=== PATIENT | male | born 1965 | race Caucasian/White ===

== ENCOUNTER 2019-08-03 14:39 | Outpatient (CLI) | payer BC, SELFPAY ==
--- NOTE | 2019-08-03 | ECHO_ITS ---
Patient Info Name: Adryan Bell Age: 54 years : 1965 Gender: Male Ht: 73 in Wt: 232 lbs BSA: 2.35 m2 HR: 74 bpm BP: 121 / 89 mmHg Heart Rhythm: Sinus Rhythm Technical Quality: Good Exam Date: 08/03/2019 3:04 PM Exam Location: [facility] Pulmonary Patient Status: Outpatient Admit Date: 08/03/2019 Staff Ordering Physician: PHYSICIAN NOT ON STAFF, NONSTAFF Automotive Production Worker: Marvin Manzo RDCS Attending Provider: PHYSICIAN NOT ON STAFF, NONSTAFF Exam Type: CA echo dop color flow w con Study Info Indications R06.00 - Dyspnea, unspecified Complete two-dimensional, color flow and Doppler transthoracic echocardiogram is performed. Strain analysis performed. History/Risk Factors Dyspnea. Summary 1. Left ventricular chamber dimension is normal. 2. Left ventricular systolic function is normal, estimated at 60-65%. 3. There is mildly increased left ventricular wall thickness. 4. The left ventricular diastolic function is grade I diastolic dysfunction. 5. E/e' 7 is not elevated. 6. Global longitudinal strain is mildly abnormal at -16.0%. 7. There is trace pulmonic regurgitation. 8. The aortic root size at the sinus of Valsalva is mildly dilated at 4.2 cm. Left Ventricle E/e' 7 is not elevated. Global longitudinal strain is mildly abnormal at -16.0%. Left ventricular chamber dimension is normal. Left ventricular systolic function is normal, estimated at 60-65%. There is mildly increased left ventricular wall thickness. The left ventricular diastolic function is grade I diastolic dysfunction. Right Ventricle Right ventricular chamber dimension is normal. Right ventricular systolic function is normal. Left Atria Left atrial chamber dimension is normal. Right Atria Right atrial chamber dimension is normal. Aortic Valve The aortic valve is trileaflet. There is no aortic valve stenosis. There is no aortic valve regurgitation. Pulmonic Valve There is trace pulmonic regurgitation. Mitral Valve There is no mitral valve stenosis. There is no mitral valve regurgitation. Tricuspid Valve There is no tricuspid valve regurgitation. Pericardium/Pleural There is no pericardial effusion. Inferior Vena Cava Normal inferior vena cava with >50% collapse upon inspiration consistent with normal right atrial pressure, 5 mmHg. Aorta The aortic root size at the sinus of Valsalva is mildly dilated at 4.2 cm. Left Ventricular Outflow Tract Name Value Normal LVOT 2D LVOT Diameter 1.99 cm LVOT Doppler LVOT Peak Gradient 4 mmHg LVOT Mean Gradient 2 mmHg LVOT VTI 17.45 cm LVOT VTI/AV VTI Ratio 0.80 LVOT Stroke Volume 54.41 ml LVOT CO 4.64 l/min LVOT CI 1.97 L/min/m2 Mitral Valve Name Value Normal
== END 2019-08-03 14:40 | disposition home or self-care (01) ==
PROVIDERS: PCP Family Medicine
DX: R06.00 Dyspnea, unspecified (principal)
CPT/HCPCS: C8929

== ENCOUNTER 2020-08-08 10:31 | Outpatient (CLI) | payer BC, SELFPAY ==
--- NOTE | ~2020-08-08 | XR_ITS ---
EXAMINATION: XR_CERV2-3V_CR EXAM DATE: 08/08/2020 11:21 INDICATION: Seronegative rheumatoid arthritis. Bilateral extremity paresthesia. Cervical fusion. TECHNIQUE: Cervical spine frontal, lateral, open-mouth odontoid projections. Comparison is made to lavelle ace examination from 01/06/2018. FINDINGS: Anterior and interbody fusion at C6-7, intact. There is moderate loss of the C5-6 disc hei ght. Mild disc disease at the 2 levels above. C7-T1 disc space poorly visualized on the lateral. Prev ertebral soft tissue and pre-dens space are within normal limits. The odontoid process is intact. Th e lateral masses of C1 line up with C2. The vertebral bodies are aligned in the AP dimension. Overall moderate cervical arthropathy. Evidence of bilateral neural foraminal stenosis at C5-6, could be mod erate. Compared to 2018, mild progression in the mid cervical disc disease, endplate osteophytes at C 5 are larger. IMPRESSION: 1. Moderate C5-6 disc disease. 2. Moderate arthropathy. 3. C6-7 fusion. Reviewed, dictated and finalized at location A.
--- NOTE | ~2020-08-08 | XR_ITS ---
EXAMINATION: XR knee RT 3V DATE: 08/08/2020 11:22 INDICATION: Seronegative rheumatoid arthritis. TECHNIQUE: 3 views of right knee were obtained. COMPARISON: None. FINDINGS: Bone alignment is normal. No fracture. There is mild osteoarthritis of medial and patellofe moral compartments characterized by tiny marginal osteophytes. There is a moderate-sized knee joint e ffusion. There is prepatellar and superficial infrapatellar bursitis. IMPRESSION: 1. Mild right knee osteoarthritis. 2. Moderate-sized right knee joint effusion. Reviewed, dictated and finalized at location A.
--- NOTE | ~2020-08-08 | XR_ITS ---
EXAMINATION: XR knee LT 3V DATE: 08/08/2020 11:21 INDICATION: Seronegative rheumatoid arthritis. TECHNIQUE: 3 views of left knee were obtained. COMPARISON: None. FINDINGS: Bone alignment is normal. No fracture. There is mild osteoarthritis of medial and patellofe moral compartments contrast by tiny marginal osteophytes. There is a small knee joint effusion. There is prepatellar and superficial infrapatellar bursitis. IMPRESSION: 1. Mild left knee osteoarthritis. 2. Small left knee joint effusion. 3. Prepatellar and superficial infrapatellar bursitis. Reviewed, dictated and finalized at location A.
--- NOTE | ~2020-08-08 | XR_ITS ---
EXAMINATION: XR foot LT min 3V EXAM DATE: 08/08/2020 11:21 INDICATION: Seronegative rheumatoid arthritis. TECHNIQUE: Left foot dorsoplantar, lateral and oblique projections obtained and reviewed. Correlation is made to Contralateral foot same date. FINDINGS: Left metatarsal bones unremarkable. The joint spaces are uniform. There are no acute f ractures or dislocations identified. There is no subcutaneous gas. The soft tissue is unremarkable. There are no radiopaque foreign bodies. IMPRESSION: Unremarkable left foot exam. Reviewed, dictated and finalized at location A.
--- NOTE | ~2020-08-08 | XR_ITS ---
EXAMINATION: XR foot RT min 3V EXAM DATE: 08/08/2020 11:21 INDICATION: Seronegative rheumatoid arthritis. TECHNIQUE: Right foot dorsoplantar, lateral and oblique projections obtained and reviewed. Correlati on is made to contralateral foot same date. FINDINGS: Right metatarsal bones unremarkable. There is mild 1st metatarsophalangeal primary osteoar thritis. Tiny juxta-articular erosions identified along the volar medial aspect of the 1st proximal phalanx with sclerotic margins, chronic and the only erosion identified. This is nonspecific, could b e gout, rheumatoid, or subchondral cyst. There are no acute fractures or dislocations identified. Th ere is no subcutaneous gas. The soft tissue is unremarkable. There are no radiopaque foreign godwin s. IMPRESSION: 1. Tiny chronic appearing nonspecific erosion right 1st proximal phalanx. 2. Mild 1st MTP osteoarthritis. Reviewed, dictated and finalized at location A.
--- NOTE | ~2020-08-08 | XR_ITS ---
EXAMINATION: XR hand LT min 3V, XR hand RT min 3V DATE: 08/08/2020 11:21 INDICATION: Seronegative rheumatoid arthritis TECHNIQUE: 1. Posteroanterior, oblique and lateral views of the left hand were obtained. 2. Posteroanterior, oblique and lateral views of the right hand were obtained. COMPARISON: None. FINDINGS: Normal alignment at both hands and wrists. Likely old healed fracture of the left third metacarpal wh ich is healed with some palmar angulation. No other fractures identified. Mild polyarticular osteoart hritis at the bilateral hands and wrists characterized by mild nonuniform joint space narrowing and/o r small marginal osteophytes. This can be seen at the bilateral distal radioulnar joints, the left ra diocarpal, bilateral first carpometacarpal and multiple metacarpophalangeal and interphalangeal joint s, the latter with distal predominance. No more uniform appearing joint space narrowing, erosions or periarticular osteopenia to suggest an inflammatory arthritis such as rheumatoid. IMPRESSION: 1. Mild polyarticular osteoarthritis at the bilateral hands and wrists. Reviewed, dictated and finalized at location B. IMPRESSION: 1. Mild polyarticular osteoarthritis at the bilateral hands and wrists.
== END 2020-08-08 10:32 | disposition home or self-care (01) ==
PROVIDERS: PCP Family Medicine
DX: R20.2 Paresthesia of skin (principal); M25.50 Pain in unspecified joint; M19.071 Primary osteoarthritis, right ankle and foot; Z98.1 Arthrodesis status; M50.322 Other cervical disc degeneration at C5-C6 level; M19.042 Primary osteoarthritis, left hand; M19.032 Primary osteoarthritis, left wrist; M25.462 Effusion, left knee; M17.0 Bilateral primary osteoarthritis of knee; M25.461 Effusion, right knee
CPT/HCPCS: 72040; 73130; 73562; 73630

== ENCOUNTER 2020-12-13 09:22 | Outpatient (CLI) | payer BC, SELFPAY ==
[2020-12-13 09:59] LABS: Alanine Aminotransferase 27 U/L (4-50); Albumin Level 4.2 g/dL (3.5-5.1); Alkaline Phosphatase 63 U/L (38-126); Anion Gap 9 mmol/L (8-16); Aspartate Amino Transferase 31 U/L (17-59); Bilirubin,Total 0.5 mg/dL (0.2-1.3); Blood Urea Nitrogen 17 mg/dL (9-20); Calcium 9.9 mg/dL (8.4-10.2); Carbon Dioxide 30 mmol/L (22-30); Chloride 98 mmol/L (98-107); Estimated Glomerular Filt Rate > 60; Glucose 175 mg/dL (65-110); Sodium 137 mmol/L (137-145); Uric Acid 6.7 mg/dL (3.5-8.5)
== END 2020-12-13 09:23 | disposition home or self-care (01) ==
PROVIDERS: PCP Family Medicine; Visit Provider Podiatrist Foot & Ankle Surgery
DX: M10.079 Idiopathic gout, unspecified ankle and foot (principal)
CPT/HCPCS: 36415; 80053; 84550

== ENCOUNTER 2021-01-20 10:03 | Outpatient (CLI) | payer BC, SELFPAY ==
[2021-01-20 10:39] LABS: Anion Gap 7 mmol/L (8-16); Blood Urea Nitrogen 19 mg/dL (9-20); Calcium 9.4 mg/dL (8.4-10.2); Carbon Dioxide 28 mmol/L (22-30); Chloride 100 mmol/L (98-107); Estimated Glomerular Filt Rate 52; Glucose 121 mg/dL (65-110); Magnesium 1.7 mg/dL (1.6-2.3); Potassium 4.7 mmol/L (3.4-5.0); Sodium 135 mmol/L (137-145)
== END 2021-01-20 10:04 | disposition home or self-care (01) ==
PROVIDERS: PCP Family Medicine; Visit Provider Family Medicine
DX: N28.9 Disorder of kidney and ureter, unspecified (principal)
CPT/HCPCS: 36415; 80048; 83735

== ENCOUNTER 2021-02-21 15:56 | Outpatient (CLI) | payer BC, SELFPAY ==
--- NOTE | ~2021-02-21 | XR_ITS ---
XR lumbar spine 2-3V DATE: 02/21/2021 16:31 INDICATION: Back pain for 12 years. Seronegative rheumatoid arthritis TECHNIQUE: AP, lateral, coned lateral lumbosacral views COMPARISON: None FINDINGS: There is degenerative spurring of the lower thoracic spine including prominent degenerative disc disease at T10-11, T11-12 and T12-L1. There is mild degenerative disc disease at L1-2, L2-3, L3-4 and L4-5. There is degenerative change at the apophyseal joints, particular at L4-5 and L5-S1, with associated grade 1 anterolisthesis at L4-5. No fracture or dislocation or bone destruction is noted. The lumbar pedicles are intact. The sacroili ac joints appear normal. IMPRESSION: Degenerative changes of the thoracic and lumbar spine Reviewed, dictated and finalized at location B.
--- NOTE | ~2021-02-21 | XR_ITS ---
EXAMINATION: XR hip LT min 2V INDICATION: Seronegative rheumatoid arthritis TECHNIQUE: Three views of the left hip are obtained. COMPARISON: None available FINDINGS: Bone alignment is normal. There is no fracture. Mild osteoarthritis is noted. The soft tiss ues are unremarkable. IMPRESSION: 1. Mild osteoarthritis. Reviewed, dictated and finalized at location A. IMPRESSION: 1. Mild osteoarthritis.
--- NOTE | ~2021-02-21 | XR_ITS ---
EXAMINATION: XR sacroiliac joints min 3V INDICATION: Seronegative rheumatoid arthritis TECHNIQUE: Three views of the sacroiliac joints are obtained. COMPARISON: None available FINDINGS: Bone alignment is normal. There is no abnormal sclerosis or erosion of the sacroiliac joint s. The soft tissues are unremarkable. IMPRESSION: 1. Unremarkable sacroiliac joints. Reviewed, dictated and finalized at location A.
== END 2021-02-21 15:57 | disposition home or self-care (01) ==
LOC: ANHIMG 16:00
PROVIDERS: PCP Family Medicine
DX: M47.817 Spondylosis without myelopathy or radiculopathy, lumbosacral region (principal); M47.815 Spondylosis without myelopathy or radiculopathy, thoracolumbar region; M06.852 Other specified rheumatoid arthritis, left hip
CPT/HCPCS: 72100; 72202; 73502

== ENCOUNTER 2021-05-08 11:40 | Outpatient (CLI) | payer BC, SELFPAY ==
--- NOTE | 2021-05-08 11:48 | ECG_ITS ---
Measurements Intervals [place] Rate: 69 P: 18 MA: 200 QRS: 20 QRSD: 88 T: 30 QT: 377 QTc: 406 Interpretive Statements SINUS RHYTHM BASELINE ARTIFACT- I, II, III NORMAL ECG Electronically Signed On 05-08-2021 12:06:14 ROAD MECHANIC by Dennys Jimenez D.O.
[2021-05-08 12:28] LABS: Anion Gap 6 mmol/L (8-16); Blood Urea Nitrogen 17 mg/dL (9-20); Calcium 9.1 mg/dL (8.4-10.2); Carbon Dioxide 28 mmol/L (22-30); Chloride 101 mmol/L (98-107); Estimated Glomerular Filt Rate > 60; Glucose 124 mg/dL (65-110); Sodium 135 mmol/L (137-145)
== END 2021-05-08 11:41 | disposition home or self-care (01) ==
LOC: ANHSURGERY 11:44
PROVIDERS: Anesthesiology; PCP Family Medicine; Visit Provider Surgery
DX: Z01.818 Encounter for other preprocedural examination (principal); K43.0 Incisional hernia with obstruction, without gangrene; I10 Essential (primary) hypertension; E11.9 Type 2 diabetes mellitus without complications
CPT/HCPCS: 36415; 80048; 86850; 86900; 86901; 93005

== ENCOUNTER 2021-05-10 01:16 | Day surgery (SDC) | payer BC, SELFPAY ==
[2021-05-07 14:54] VITALS: BMI 29.7
--- NOTE | 2021-05-07 15:02 | PC.NURSE ---
Report to the Outpatient Waiting Room, entrance under the green pavilion located off [facility], at time __1000 on date _05/10/21 . OR Time: _1200 . - You and your visitor will be asked a series of questions to screen for COVID 19 for your protection. - A mask is required within the hospital. - Only one visitor is allowed at this time. Patient visitors will be guided where to wait when not with patient. Preoperative COVID Testing Requirements: No COVID Test needed if: (proof is required; if not received patient will have Rapid Test prior to entry) - Patient has received COVID Vaccine at least 14 days prior to procedure date or - Patient has positive COVID test result within last 90 days of surgery date. COVID Test needed if above criteria is not met If not COVID vaccinated a COVID test must be conducted within 72 hours of surgery and patient is asked to isolate self from time of testing until procedure. You will go to the [facility] Testing Site for your COVID testing. The [facility] Testing site is located at the corner of [address] [facility]. You will only be called if COVID results are positive and your surgeon may reschedule your elective surgery date. Patients may have clear liquids (water, carbonated beverages, clear teas, apple juice) until 3 hours prior to surgery with a maximum of 20 ounces. - No food from midnight until time of surgery - Infants may have breast milk until 4 hours before surgery, infant formula 6 hours prior to surgery. - Children will be allowed to drink immediately following surgery. If applicable, please bring a bottle or sippy cup to assist with drinking. Juice, water, soda, and popsicles are readily available. For infants on formula, please bring formula the day of surgery. Pacifiers are allowed. Take the following medications with a SIP of water the morning of surgery: ___NONE Medications to discontinue per physician NONE Date to take last dose Please no make-up, nail guinean, hairspray, perfume, deodorant, or body powder the day of surgery. No jewelry (including any body piercings) or valuables the day of surgery, leave them at home. Please take a shower or bath the night before, or the morning of, surgery with an antibacterial soap. Wear comfortable, loose fitting clothing. Children are encouraged to wear pajamas. - Jewelry must be removed prior to entering the operating room. Rings and piercings that are not removed may be cut off. - The hospital will not accept responsibility for valuables. - Please leave all valuables, including medications, at home the day of surgery. HIBICLENS SHOWER MORNING OF SURGERY If you are going home after surgery, a licensed cl[place] driver must drive you home. - NO public transportation without another adult. - We recommend that an adult stay with you for 24 hours following discharge. - We also recommend that you do not drive, make important decision, drink alcoholic beverages, or take any drugs that were not prescribed by your health care provider for at least 24 hours after your discharge time. For Pediatric surgeries, we recommend two adults accompany the child home (only one inside the building at this time). Follow any additional instructions given to you from your surgeon. Telephone instructions given to __PATIENT and asked if any additional questions and then verbalized understanding. Patient advised to call surgeon office or pre surgery nurse liaison [phone] if any additional questions.
[2021-05-10] VITALS (10 sets, daily range): BP systolic 106–131; BP diastolic 64–87; PULSE 58–85; RESP 11–18; TEMP 36.6–36.8; O2SAT 93–100
[2021-05-10] MEDS: ACETAMINOPHEN 500 MG TABLET 1000 MG PO (10:28)
[2021-05-10] MEDS: KETOROLAC 15 MG/ML VIAL (*BKC) IV PUSH (10:41)
[2021-05-10 10:53] LABS: Glucose Point of Care 103 mg/dl (65-105)
--- NOTE | 2021-05-10 11:10 | WPDANESEPPF ---
Anes - Initial Pre Proc Eval Procedure: Operation Date: 05/10/21 12:00 Proposed Procedures p Robotic Assisted Incarcerated Incisional Hernia Repair with Mesh - Lisette Wynn MD Date/Time: 05/10/21 11:10 Surgeon: Lisette Wynn MD Pre Op Diagnosis: Recurrent Incarcerated Incisional Hernia Patient Data Age: 56 Gender: M Height: 1.85 m Weight: 102.8 kg Allergies Allergy/AdvReac Type Severity Reaction Status Date / Time No Known Allergies Allergy Verified 05/10/21 10:14 Home Medications Medication Instructions Recorded Confirmed Type syringe with needle 3 mL 21 gauge #26 ea 08/10/20 04/25/21 Rx x 1 lisinopril 10 mg tablet 10 mg PO DAILY #90 tablet 11/07/20 05/10/21 Rx upadacitinib 15 mg tablet,extended 15 mg PO DAILY 01/19/21 05/10/21 History release 24 hr blood-glucose meter #1 ea 02/07/21 04/25/21 Rx allopurinol 100 mg tablet 100 mg PO DAILY 04/16/21 05/10/21 History metformin 500 mg tablet,extended 500 mg PO DAILY #30 tablet 04/24/21 05/10/21 Rx release 24 hr duloxetine 30 mg PO HS 05/07/21 05/10/21 History Laboratory Tests 05/10/21 10:50 POC Capillary Glucose 103 mg/dl mg/dl (65-105) Patient hx anesthesia problems: none Family hx anesthesia problems: none Results Review: All pre-operative results and documents have been reviewed as part of the pre-operative evaluation. [facility] Past Medical History Medical History Arthritis BMI greater than 30 BPH (benign prostatic hyperplasia) Chronic anxiety Chronic sore throat Diabetes Diabetes type 2, controlled Generalized osteoarthritis of multiple sites Insomnia Low testosterone in male Neurogenic bladder Overweight with body mass index (BMI) of 29 to 29.9 in adult Radiculopathy affecting upper extremity Rheumatoid arthritis Throat pain in adult Undifferentiated inflammatory polyarthritis Surgical History Surgical History History of fusion of cervical spine C6-C7 Hx of hernia repair Hx of knee surgery Family History Family History Father Family history of diabetes mellitus in first degree relative Family history of cardiovascular disease Grandparent Family history of malignant neoplasm of breast in first degree relative Other Family history of kidney disease Family history of malignant neoplasm of ovary Social History Social History Social History: caffeine use: occasional glass of tea Smoking status: Never smoker Alcohol intake: never Substance use: never Living arrangements: with family 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 Informed Consent: The patient's anesthetic plan and its attendant risks and benefits were discussed with the patient/family/POA. Questions were solicited and answers provided to the satisfaction of the patient/family/POA.
[2021-05-10] MEDS: SCOPOLAMINE 1.5 MG PATCH TRANSDERM (11:45)
[2021-05-10] MEDS: LACTATED RINGERS 1,000 ML 30 ML IV CONT (11:45)
--- NOTE | 2021-05-10 12:01 | WPDHPUPDATE1 ---
History and Physical Update Update Date/Time: 05/10/21 12:01 History and Physical has been reviewed, including an updated exam of the patient. There are NO changes in the patient's condition. Risks, benefits, and alternatives have been discussed and questions answered. Patient agrees to proceed with procedure.
[2021-05-10] MEDS: ceFAZolin 2 GM/D5W 50 ML 2 GM/50 ML BAG IVPB (12:07)
[2021-05-10] MEDS: LIDO 2%/EPINEPHRINE 1:100,000 20 ML VIAL 36 ML INFILTRATE (12:32)
[2021-05-10 14:02] LABS: Glucose Point of Care 136 mg/dl (65-105)
--- NOTE | 2021-05-10 14:02 | W.PM.PROC2 ---
Procedure Note - Detailed Date of Procedure 05/10/21 Pre-op Diagnosis Recurrent Incarcerated Incisional Hernia Post-op Diagnosis same Procedure Performed Robotic assisted repair recurrent incarcerated incisional hernia with mesh Surgeon Lisette Wynn MD Anesthesia general Indications 56-year-old male presenting with recurrent incarcerated incisional hernia Findings recurrent incarcerated periumbilical or hernia measuring approximately 4 cm Description of Procedure The patient was taken the operating room placed in the supine position. After adequate induction of general anesthesia, the patient was prepped and draped in normal sterile fashion. A time-out was then done to verify the patient's identity as well as the procedure being performed. I began by making a 5 mm incision in the left upper quadrant. Through this, a Veress needle was placed into the peritoneal cavity and CO2 gas was insufflated. After adequate pneumoperitoneum was achieved, a 5 mm trocar was placed through this incision. I then placed the laparoscope through this trocar site and under direct visualization I placed a 8 mm port in the left mid abdomen as well as an additional 8 mm port in the left lower abdomen. I then moved the camera to the lower port and replaced the 5 mm port with a 12 mm airport. The robot was then docked to the 3 port sites. I then went to the robotic console. I began by identifying the hernia. A moderate-sized incarcerated hernia was noted in the periumbilical region. Using graspers, I was able to reduce this hernia. The hernia was noted to contain a large amount of preperitoneal fat and omentum. Once reduced, I also reduced and dissected out the hernia sac. I then closed the approximately 4 cm defect with 0 strata fix suture. I then placed a [address] mesh into the abdominal cavity. The positional stitch was placed in the middle of the mesh and brought up centering the mesh over the defect. Once this was done, I used 2 0 V lock suture x 2 to circumferentially suture the mesh to the abdominal. Once the mesh was completely sutured in, I was happy with our tension-free repair. The mesh was noted to have good overlap of the defect. I then removed the positioning device. At this point, the robot was undocked and all ports were removed. I then closed the 12 mm port site with an 0 Vicryl [id number] suture at the fascial level. All port sites were then closed with 4 O Monocryl subcuticular suture. The patient tolerated the procedure well, is extubated in the operating room postoperative, OB transferred to the recovery room in stable condition. Implants [address] mesh Estimated Blood Loss 10 Drains No Packing No Pathology none sent Complications No immediate complications Condition stable Disposition PACU
--- NOTE | 2021-05-10 14:44 | SUR.PHASEI ---
Simple mask removed at 1443.
[2021-05-10] MEDS: fentaNYL CITRATE INJ (*CRX) 100 MCG/2 ML VIAL 25 MCG IV PUSH ×2 (15:07→15:10)
[2021-05-10] MEDS: oxyCODONE HCL (*CRX) 5 MG TAB IR PO (15:41)
== END 2021-05-10 16:49 | disposition home or self-care (01) ==
PROVIDERS: PCP Family Medicine; Visit Provider Surgery
PROC: (CPT 49657; principal; 2021-05-10 12:00)
DX: K43.0 Incisional hernia with obstruction, without gangrene (principal); E11.9 Type 2 diabetes mellitus without complications; F41.9 Anxiety disorder, unspecified; M06.9 Rheumatoid arthritis, unspecified; M06.4 Inflammatory polyarthropathy; N40.0 Benign prostatic hyperplasia without lower urinary tract symptoms; N31.9 Neuromuscular dysfunction of bladder, unspecified; Z79.84 Long term (current) use of oral hypoglycemic drugs; Z98.1 Arthrodesis status
CPT/HCPCS: 49657; S2900; 82948; A9270; J0690; J1100; J1885; J2250; J2270; J2405; J2704; J2710; J3010; J7120

== ENCOUNTER 2021-06-05 15:57 | Outpatient (CLI) | payer BC, SELFPAY ==
--- NOTE | ~2021-06-05 | US_ITS ---
EXAMINATION: US renal BI DATE: 06/05/2021 16:37 INDICATION: Proteinuria, elevated creatinine TECHNIQUE: Multiple grayscale and Doppler ultrasound images of the kidneys were obtained. COMPARISON: None. FINDINGS: The right kidney measures 12.6 x 6.3 x 6.6 cm. The left kidney measures 11.3 x 4.3 x 5.7 cm . There is a 1.7 cm cyst of the left kidney. The kidneys demonstrate normal parenchymal echogenicity. There is no hydronephrosis. The bladder is normal. IMPRESSION: 1. Normal kidneys without hydronephrosis. Reviewed, dictated and finalized at location F. 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
== END 2021-06-05 15:58 | disposition home or self-care (01) ==
PROVIDERS: PCP Family Medicine; Visit Provider Internal Medicine Nephrology
DX: R80.8 Other proteinuria (principal); R79.89 Other specified abnormal findings of blood chemistry
CPT/HCPCS: 76775

== ENCOUNTER 2021-07-18 14:06 | Outpatient (CLI) | payer BC, SELFPAY ==
--- NOTE | 2021-07-20 10:20 | WPDHOLTEREM ---
Holter/Event Monitor Holter/Event Monitor Date of procedure: 07/18/21 Holter/Event Procedure: 24 Hr Holter Monitor Indications: Tachycardia Conclusion: 1. 24 hour holter monitor on 07/18/21. 2. Underlying rhythm is sinus rhythm. HR range 52-143 bpm; average HR 80 bpm. 3. There are 17 premature supraventricular complexes and 2 supraventricular couplets. No supraventricular tachycardia. 4. There are 2 premature ventricular complexes and 1 ventricular couplet. No ventricular tachycardia. 5. No sinoatrial or atrioventricular blocks. No significant pauses greater than 2 seconds. 6. No symptoms available for correlation.
== END 2021-07-18 14:07 | disposition home or self-care (01) ==
LOC: ANHCARD 14:07
PROVIDERS: PCP Family Medicine; Visit Provider Family Medicine
DX: R00.0 Tachycardia, unspecified (principal)
CPT/HCPCS: 93225; 93226

== ENCOUNTER 2022-10-14 12:53 | Emergency (ER) | payer BC, SELFPAY ==
[2022-10-14 12:54] VITALS: BP 132/88; PULSE 110; RESP 21; TEMP 36.1; O2SAT 99
[2022-10-14 13:12] LABS: Basophils Absolute Auto 0.1 K/mm3 (0.0-0.1); Basophils Percent Auto 0.4 % (0.2-1.2); Eosinophils Absolute Auto 0.2 K/mm3 (0-0.3); Eosinophils Percent Auto 1.7 % (0-4.4); Hematocrit 41.9 % (42.0-52.0); Immature Granulocyte Absolute 0.06 K/mm3 (0.00-0.031); Immature Granulocyte Percent A 0.4 % (0-0.5); Lymphocytes Absolute Auto 1.79 K/mm3 (0.9-3.2); Lymphocytes Percent Auto 12.7 % (18.3-44.2); Mean Corpuscular HGB Conc 33.4 g/dl (32-36); Mean Corpuscular Hemoglobin 31.5 pg (26-34); Mean Corpuscular Volume 94.4 fl (80-100); Monocytes Absolute Auto 0.7 K/mm3 (0.1-0.6); Monocytes Percent Auto 5.1 % (2.6-8.5); Neutrophils Absolute Auto 11.2 K/mm3 (1.3-6.7); Neutrophils Percent Auto 79.7 % (45.5-73.1); Platelet Count Result 306 k/mm3 (150-375); Red Blood Count 4.44 M/mm3 (4.6-6.20); Red Cell Distribution Width 13.1 % (11.5-14.5); White Blood Count 14.1 K/mm3 (4.5-10.0)
[2022-10-14 13:18] LABS: Appearance Urine Clear (Clear); Bilirubin Urine Negative (Negative); Blood Urine Negative (Negative); Color Urine Dark Yellow (Yellow); Glucose Urine UA Negative (Negative); Ketones Urine Negative (Negative); Leukocyte Esterase Ur Negative LEU/UL (Negative); Nitrate Urine Negative (Negative); Protein Urine Negative (Negative); Urobilinogen Urine 0.2 mg/dL (<2.0); pH Urine 5.5 (5.0-9.0)
[2022-10-14 13:29] LABS: Add Urine Microscopic? NO
[2022-10-14 13:34] LABS: Alanine Aminotransferase 27 U/L (6-50); Albumin Level 4.8 g/dL (3.5-5.1); Alkaline Phosphatase 64 U/L (38-126); Anion Gap 8 mmol/L (8-16); Aspartate Amino Transferase 32 U/L (17-59); Bilirubin,Total 0.9 mg/dL (0.2-1.3); Blood Urea Nitrogen 19 mg/dL (9-20); Calcium 9.2 mg/dL (8.4-10.2); Carbon Dioxide 27 mmol/L (22-30); Chloride 102 mmol/L (98-107); Estimated CRCL calculation 66 ml/min; Estimated Glomerular Filt Rate 52; Glucose 109 mg/dL (65-110); Lipase 25 U/L (23-300); Potassium 4.7 mmol/L (3.4-5.0); Sodium 137 mmol/L (137-145)
--- NOTE | 2022-10-14 15:00 | PC.NURSE ---
pt ambulated to intake desk and states he is leaving. pt ambulatory out of ED.
== END 2022-10-14 15:30 | disposition left against medical advice (07) ==
LOC: ANHED 15:06
PROVIDERS: Emergency Provider Emergency Medicine; PCP Family Medicine
DX: R10.9 Unspecified abdominal pain (principal)
CPT/HCPCS: 36415; 80053; 81003; 83690; 85025; 99199

== ENCOUNTER 2023-11-25 00:59 | Day surgery (SDC) | payer BC, SELFPAY ==
[2023-11-10 14:29] VITALS: BMI 30.4
[2023-11-25 14:20] VITALS: BP 120/92; PULSE 62; RESP 18; TEMP 36.3; O2SAT 99
[2023-11-25] MEDS: LACTATED RINGERS 1,000 ML 150 ML IV CONT (14:24)
--- NOTE | 2023-11-25 14:35 | WPDANESEPPF ---
Anes - Initial Pre Proc Eval Procedure: Operation Date: 11/25/23 16:00 Proposed Procedures p Esophagogastroduodenoscopy - Luis Eduardo Rg MD Date/Time: 11/25/23 14:35 Surgeon: Luis Eduardo Rg MD Pre Op Diagnosis: Abdominal Distension, Abdominal pain Patient Data Age: 58 Gender: M Height: 1.85 m Weight: 106.6 kg Last Vital Signs Temp 97.3 F L 11/25/23 14:20 Pulse 62 11/25/23 14:20 Resp 18 11/25/23 14:20 BP 120/92 H 11/25/23 14:20 Pulse Ox 99 11/25/23 14:20 O2 Del Method Room Air 11/25/23 14:20 Allergies Allergy/AdvReac Type Severity Reaction Status Date / Time No Known Allergies Allergy Verified 11/25/23 14:18 Home Medications Medication Instructions Recorded Confirmed Type blood-glucose meter (Contour Next #1 ea 02/07/21 07/24/23 Rx Meter) blood sugar diagnostic (Contour #100 ea 12/19/21 07/24/23 Rx Next Test Strips) duloxetine 30 mg capsule,delayed See Rx Instructions .Route 05/26/22 11/10/23 Rx release .COMPLEX #90 caps allopurinol 300 mg tablet 300 mg PO DAILY #90 tabs 08/20/23 11/25/23 Rx fexofenadine 30 mg tablet 60 mg PO DAILY 11/10/23 11/10/23 History metoprolol succinate 50 mg 50 mg PO HS 11/10/23 11/10/23 History tablet,extended release 24 hr nitroglycerin 0.4 mg sublingual 0.4 mg sublingual DAILY PRN Chest 11/10/23 11/10/23 History tablet Pain rosuvastatin 10 mg tablet 100 mg PO DAILY 11/10/23 11/10/23 History Patient hx anesthesia problems: none Family hx anesthesia problems: none Results Review: All pre-operative results and documents have been reviewed as part of the pre-operative evaluation. [facility] Past Medical History Medical History (Updated 11/12/23 @ 15:38 by Alisia Neumann, LEGAL SUPPORT SPECIALIST) Arthritis BMI 29.0-29.9,adult BMI 30.0-30.9,adult BMI greater than 30 BPH (benign prostatic hyperplasia) Cervical disc disease with myelopathy Cervical disc disorder at C5-C6 level with radiculopathy Chronic anxiety Chronic sore throat COVID-19 Diabetes Diabetes type 2, controlled General weakness Generalized osteoarthritis of multiple sites Gout Insomnia Left upper quadrant pain Low testosterone in male Neurogenic bladder Overweight with body mass index (BMI) of 29 to 29.9 in adult Progressive neurological disorder Radiculopathy affecting upper extremity Rheumatoid arthritis Seronegative rheumatoid arthritis Tachycardia Throat pain in adult Undifferentiated inflammatory polyarthritis Surgical History Surgical History History of fusion of cervical spine C6-C7 History of incisional hernia repair 05/10/21 Robotic assisted repair recurrent incarcerated incisional hernia with mesh Hx of hernia repair Hx of knee surgery Family History Family History Father Family history of diabetes mellitus in first degree relative Family history of cardiovascular disease Grandparent Family history of malignant neoplasm of breast in first degree relative Other Family history of kidney disease Family history of malignant neoplasm of ovary Social History Social History Social History: caffeine use: occasional glass of tea Smoking status: Never smoker Alcohol intake: never Substance use: never Substance use type: does not use Do You Feel Safe in your Home?: Yes Lack of Transportation: No Lack of Food: Never True Current Housing: I Have Housing Concerned About Future Housing: No Difficulty Paying Gas/Electric Bills: No Difficulty Paying for Meds: No Currently Unemployed: No Education: Associate Degree Difficulty w/ Childcare or Family Care: No Living arrangements: with family 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
--- NOTE | 2023-11-25 14:53 | PM.HPGS ---
History of Present Illness History of Present Illness Consent: Risks, benefits, and alternatives have been discussed and questions answered. Patient agrees to proceed with procedure. Chief complaint: Abdominal Distension, Abdominal pain Narrative: Adryan Bell is a 58 year old male with bloating and gas, had EGD but years ago, he is not using ppi. Review of Systems Review of Systems: All systems reviewed & are unremarkable except as noted in HPI and below PMFSH Past Medical History Medical History (Updated 11/12/23 @ 15:38 by Alisia Neumann APRN) Arthritis BMI 29.0-29.9,adult BMI 30.0-30.9,adult BMI greater than 30 BPH (benign prostatic hyperplasia) Cervical disc disease with myelopathy Cervical disc disorder at C5-C6 level with radiculopathy Chronic anxiety Chronic sore throat COVID-19 Diabetes Diabetes type 2, controlled General weakness Generalized osteoarthritis of multiple sites Gout Insomnia Left upper quadrant pain Low testosterone in male Neurogenic bladder Overweight with body mass index (BMI) of 29 to 29.9 in adult Progressive neurological disorder Radiculopathy affecting upper extremity Rheumatoid arthritis Seronegative rheumatoid arthritis Tachycardia Throat pain in adult Undifferentiated inflammatory polyarthritis Surgical History Surgical History History of fusion of cervical spine C6-C7 History of incisional hernia repair 05/10/21 Robotic assisted repair recurrent incarcerated incisional hernia with mesh Hx of hernia repair Hx of knee surgery Family History Family History Father Family history of diabetes mellitus in first degree relative Family history of cardiovascular disease Grandparent Family history of malignant neoplasm of breast in first degree relative Other Family history of kidney disease Family history of malignant neoplasm of ovary Social History Social History Social History: caffeine use: occasional glass of tea Smoking status: Never smoker Alcohol intake: never Substance use: never Substance use type: does not use Do You Feel Safe in your Home?: Yes Lack of Transportation: No Lack of Food: Never True Current Housing: I Have Housing Concerned About Future Housing: No Difficulty Paying Gas/Electric Bills: No Difficulty Paying for Meds: No Currently Unemployed: No Education: Associate Degree Difficulty w/ Childcare or Family Care: No Living arrangements: with family 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 Spiritual care concerns: No Meds Home Medications and Allergies Home Medications Medication Instructions Recorded Confirmed Type blood-glucose meter (Contour Next #1 ea 02/07/21 07/24/23 Rx Meter) blood sugar diagnostic (Contour #100 ea 12/19/21 07/24/23 Rx Next Test Strips) duloxetine 30 mg capsule,delayed See Rx Instructions .Route 05/26/22 11/10/23 Rx release .COMPLEX #90 caps allopurinol 300 mg tablet 300 mg PO DAILY #90 tabs 08/20/23 11/25/23 Rx fexofenadine 30 mg tablet 60 mg PO DAILY 11/10/23 11/10/23 History metoprolol succinate 50 mg 50 mg PO HS 11/10/23 11/10/23 History tablet,extended release 24 hr nitroglycerin 0.4 mg sublingual 0.4 mg sublingual DAILY PRN Chest 11/10/23 11/10/23 History tablet Pain rosuvastatin 10 mg tablet 100 mg PO DAILY 11/10/23 11/10/23 History Allergies Allergy/AdvReac Type Severity Reaction Status Date / Time No Known Allergies Allergy Verified 11/25/23 14:18 Vital Signs Vital Signs - 24 hr 11/25/23 14:20 Temperature 97.3 F L Pulse Rate 62 Respiratory Rate 18 Blood Pressure 120/92 H Pulse Oximetry 99 Oxygen Delivery Room Air Exam Const: General: comfortable and no acute distress HENMT: Face/Nose/Sinus: Normal nares present Eyes: Gene
[2023-11-25 15:27] VITALS: BP 118/79; PULSE 62; RESP 20; O2SAT 90
[2023-11-25 15:37] VITALS: BP 125/77; PULSE 62; RESP 20; O2SAT 97
[2023-11-25 15:47] VITALS: BP 124/89; PULSE 62; RESP 24; O2SAT 96
== END 2023-11-25 15:54 | disposition home or self-care (01) ==
PROVIDERS: PCP Family Medicine; Referring Provider Nurse Practitioner Family; Visit Provider Internal Medicine Gastroenterology
PROC: 0DJ08ZZ Inspection of Upper Intestinal Tract, Via Natural or Artificial Opening Endoscopic (ICD-10-PCS; CPT 43235; principal; 2023-11-25 16:00)
DX: R14.0 Abdominal distension (gaseous) (principal); E11.9 Type 2 diabetes mellitus without complications; M06.9 Rheumatoid arthritis, unspecified
CPT/HCPCS: 43239; 88305; J2704; J7120

== ENCOUNTER 2024-11-18 08:08 | Outpatient (CLI) | payer OTHER, SELFPAY ==
--- NOTE | ~2024-11-18 | US_ITS ---
TESTICULAR ULTRASOUND (Doppler ultrasound interrogation techniques used as needed for this exam.) Ordering provider: Alisia Neumann APRN History: . N45.1 - Epididymitis . Comparison: None. FINDINGS: TESTICLES: Normal in size. The right measures 4.5x 3.2x 2.7 cm and the left measures 4x 3x 2.6 cm. No rmal echogenicity bilaterally without mass lesion. Normal Doppler flow bilaterally. EPIDIDYMIDES: Normal in size. The right measures 1 cm and the left 0.6 cm. Normal echogenicity bilate rally. Both demonstrate normal Doppler flow. HYDROCELE: None. VARICOCELE: None. OTHER ABNORMALITY: None seen. IMPRESSION: normal testicular ultrasound. Reviewed, dictated and finalized at location A.
== END 2024-11-18 08:09 | disposition home or self-care (01) ==
PROVIDERS: PCP Nurse Practitioner Adult Health; Visit Provider Nurse Practitioner Adult Health
DX: N45.1 Epididymitis (principal); N41.9 Inflammatory disease of prostate, unspecified
CPT/HCPCS: 76870; 93976

== ENCOUNTER 2025-03-16 10:17 | Outpatient (CLI) | payer OTHER, SELFPAY ==
--- NOTE | ~2025-03-16 | CT_ITS ---
EXAMINATION: CT abdomen pelvis wo con DATE: 03/16/2025 10:33 INDICATION: Right lower quadrant pain TECHNIQUE: Computed tomography (CT) of the abdomen and pelvis was performed without intravenous contrast. The dose-length product was 718.54 mGy-cm. Automated exposure control and iterative reconstruction technique were employed. COMPARISON: CT dated 05/31/2011 FINDINGS: Lung bases unremarkable. Heart size normal. No significant pleural or pericardial effusion. Fatty infiltration of the liver. Gallbladder is present. There are calcified granulomas of the spleen. The pancreas, adrenal glands are unremarkable. There is a new intermediate density left renal mass exophytic from the lower pole of the left kidney measuring 2.4 cm with density measurement of 30 Hounsfield units. There are nonobstructing bilateral renal stones. No ureteral stones or hydronephrosis. No significant vascular abnormality. No lymphadenopathy. Nonobstructive bowel gas pattern. Normal appendix. No free air or free fluid. No evidence for hernia. Colonic diverticulosis without evidence for diverticulitis. IMPRESSION: 1. New intermediate density 2.4 cm left renal mass. Cannot exclude renal cell carcinoma. Correlation with MRI without and with contrast recommended for further evaluation. 2: Nonobstructing bilateral nephrolithiasis. Reviewed, dictated and finalized at location O. IMPRESSION: 1. New intermediate density 2.4 cm left renal mass. Cannot exclude renal cell c arcinoma. Correlation with MRI without and with contrast recommended for furthe r evaluation. 2: Nonobstructing bilateral nephrolithiasis.
--- NOTE | ~2025-03-16 | XR_ITS ---
XR abdomen/kub 1V 03/16/2025 10:40 INDICATION: Renal stones. Right lower quadrant pain. TECHNIQUE: KUB COMPARISON: None FINDINGS: Bowel gas pattern is normal. There is no evidence of free air, mass, organomegaly, ascites or obstruction. There are bilateral renal stones. The bones appear intact. Lung bases intact. IMPRESSION: 1: Bilateral nephrolithiasis.. Reviewed, dictated and finalized at location O.
[2025-03-16 11:35] LABS: Hematocrit 44.1 % (42.0-52.0); Hemoglobin 14.5 g/dL (14.0-18.0); Immature Granulocyte Percent A 0.5 % (0-0.5); Lymphocytes Absolute Auto 1.85 K/mm3 (0.9-3.2); Mean Corpuscular HGB Conc 32.9 g/dl (32-36); Mean Corpuscular Hemoglobin 31.0 pg (26-34); Mean Corpuscular Volume 94.2 fl (80-100); Nucleated Red Blood Cells Absolute Auto 0.000 K/mm3 (0.0-0.012); Nucleated Red Blood Cells Perc 0.0 % (0.0-0.2); Platelet Count Result 321 k/mm3 (150-375); Red Blood Count 4.68 M/mm3 (4.6-6.20); White Blood Count 7.6 K/mm3 (4.5-10.0)
[2025-03-16 12:00] LABS: Alanine Aminotransferase 24 U/L (6-50); Albumin Level 4.4 g/dL (3.5-5.1); Alkaline Phosphatase 61 U/L (38-126); Anion Gap 8 mmol/L (4-12); Aspartate Amino Transferase 33 U/L (17-59); Bilirubin,Total 0.7 mg/dL (0.2-1.3); Blood Urea Nitrogen 18 mg/dL (9-20); Calcium 9.2 mg/dL (8.4-10.2); Carbon Dioxide 29 mmol/L (22-30); Chloride 102 mmol/L (98-107); Cholesterol 164 mg/dL (0-200); Estimated Glomerular Filt Rate > 60; Glucose 118 mg/dL (65-110); HDL Direct 44 mg/dL; Potassium 4.1 mmol/L (3.4-5.0); Sodium 139 mmol/L (137-145); Total Protein 8.0 g/dL (6.3-8.2); Triglycerides 110 mg/dL (<150)
[2025-03-16 12:08] LABS: MALB Creatinine Ratio 19.6 mg/g (0-30)
--- OUTSIDE RECORDS SUMMARY | 2025-03-16 12:33 | XMS_ITS | Encounter Summary ---
Author Organization [facility] Address [facility] [place] [address] Care Team Providers Care Forensic Medical Examiner Name Role Phone Moisés Alexis MD Primary Care Provider [phone] Encounter Details Date Type Department Care Team (Late st Contact Info) Description 04/09/2024 [facility] [address] [place] [address] Jamey No MA Social History Tobacco Use Types Packs/Day Years Used Date Smoking Tobacco: Never Smokeless Tobacco: Never Alcohol Use Standard Drinks/Week Comments Never 0 (1 standard drink = 0.6 oz pur e alcohol) Sex and Gender Information Value Date Recorded Sex Assigned at Not on file Legal 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 Gender Identity Not on file Sexual Orientation Not on file 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 file Not on file Not on file documented as of this encounter Plan of Treatment Upcoming Encounters Date Type Department Care Team (Late st Contact Info) Description 03/21/2025 9:15 AM CDT Office Visit [facility] [address] [place], [place] [id number] Josefa Neal, LANCE [facility] [address] [place] [address] documented as of this encounter Procedures Procedure Name Priority Date/Time Associated Diagnosis Comments LIPID PANEL Routine 07/16/2023 HEMOGLOBIN, GLYCOSYLATED Routine 07/01/2023 COMPREHENSIVE METABOLIC PANEL Routine 07/01/2023 CBC, MANUAL DIFF Routine 07/01/2023 THYROID STIM HORMONE TSH Routine 07/01/2023 VITAMIN D, 25 OH Routine 07/01/2023 documented in this encounter Results * LIPID PANEL (07/16/2023) Pathologist [facility] [place] CHOLESTEROL 208 TRIGLYCERIDES 325 HDL 49 LDL (CALCULATED) 116 NON HDL CHOLESTEROL 159 Default History Genericprovider LABORATORY Final Result * VITAMIN D, 25 OH (07/01/2023) Pathologist [facility] [place] VITAMIN D 25 HYDROXY S/P/B 35 07/01/2023 Default History Genericprovider LABORATORY Final Result * (ABNORMAL) COMPREHENSIVE METABOLIC PANEL (07/01/2023) Pathologist [facility] [place] SODIUM S/P/B 139 GLUCOSE 122 mg/dL AST 18 BUN 25 CREATININE S/P/B 1.36(A) 0.7 - 1.3 CALCIUM S/P/B 9.7 POTASSIUM S/P/B 4.6 CHLORIDE S/P/B 102 ALT 29 GFR ESTIMATE 60 Default History Genericprovider LABORATORY Final Result * CBC, MANUAL DIFF (07/01/2023) Pathologist [facility] [place] WBC 9.1 HGB 15.7 HCT 46.9 PLT 284 Default History Genericprovider LABORATORY Final Result * HEMOGLOBIN, GLYCOSYLATED (07/01/2023) Pathologist [facility] [place] HGB A1C 6.2 % Default History Genericprovider LABORATORY Final Result * THYROID STIM HORMONE TSH (07/01/2023) Pathologist [facility] [place] TSH 3.41 us Default History Genericprovider LABORATORY Final Result documented in this encounter Visit Diagnoses Not on filedocumented in this encounter Care Teams Forensic Medical Examiner Relationship Specialty Start Date End Date Moisés Alexis MD [address] [address] PCP - General FAMILY PRACTICE 07/03/23 documented as of this encounter
--- OUTSIDE RECORDS SUMMARY | 2025-03-16 12:33 | XMS_ITS | Clinical Summary ---
Author Organization [facility] [address] [facility] Address [address] [place] [address] Phone Care Team Providers Care Photo Finisher Name Role Phone Augustine Monroy MD Unavailable [phone] Moisés Alexis MD Primary Care Provider [phone] Dionne Magallanes Unavailable Elgin Batista MD Unavailable Macario Renee MD Unavailable [phone] Allergies No known active allergies Medications allopurinoL (ZYLOPRIM) 300 mg tablet Take 300 mg by mouth daily 06/02/19 23 Active albuterol HFA (PROVENTIL HFA,VENTOLIN HFA,PROAIR HFA) 90 mcg/actuation inhaler Inhale 2 puffs every 4 (four) hours as needed 11/14/19 22 Active rosuvastatin (CRESTOR) 10 mg tablet Take 1 tablet (10 mg total) by mouth daily 08/05/19 24 Active modafiniL (PROVIGIL) 100 mg tablet Take 1 tablet (100 mg total) by mouth every morning Active DULoxetine DR (CYMBALTA) 30 mg capsule Take 1 capsule (30 mg total) by mouth daily 30 capsule 1 07/29/19 25 Active Trelegy Ellipta 200-62.5-25 mcg inhaler INHALE 1 INHALATION BY MOUTH DAILY Active valsartan (DIOVAN) 160 mg tablet Take 1 tablet (160 mg total) by mouth daily 02/23/20 25 Active amLODIPine (NORVASC) 5 mg tablet Take 1 tablet (5 mg total) by mouth daily 02/23/20 25 Active azaTHIOprine (IMURAN) 50 mg tablet Take 1 tablet (50 mg total) by mouth daily 30 tablet 2 03/02/20 25 025 Active leflunomide (ARAVA) 20 mg tabletIndicati ons:Rheumatoid Arthritis Take 1 tablet (20 mg total) by mouth daily 90 tablet 1 03/17/20 24 025 Discontinued upadacitinib (Rinvoq) 15 mg tablet extended release 24 hr Take 15 mg by mouth daily 30 tablet 3 05/17/20 24 025 Discontinued metoprolol XL (TOPROL-XL) 50 mg extended release tablet Take 1 tablet (50 mg total) by mouth daily 11/10/19 24 025 Discontinued predniSONE (DELTASONE) 5 mg tablet Take 1 tablet (5 mg) by mouth daily as needed (joint pain) 30 tablet 2 09/28/19 25 025 Discontinued Active Problems Problem Noted Date Diagnosed Date Weakness generalized 09/16/2022 Assessment & Plan (09/16/2022 12:59 PM CDT): Continues to follow up with Dr. Batista. Still with lower extremity weakness, difficulty breathing (even to lean over and tie shoes) and neuropathies. Will check myositis panel today (weakness, dyspnea), although unlikely given normal muscle enzymes in the past. Tendinitis, de Quervain's 09/16/2022 Assessment & Plan (09/16/2022 1:03 PM CDT): +Finkelsteins bilaterally. Also with paresthesias of the bilateral 4-5th digits and ttp along the R cubital tunnel. Will refer to Dr. Canales hand orthopedist. Encounter for long-term (cur rent) use of high-risk medication 05/28/2021 Overview (03/09/2025): 02/2025 TPMT 18 Assessment & Plan (03/02/2025 9:23 PM CDT): Will monitor routine labs while on immunosuppressive medication. Will check TPMT today. He is on allopurinol and therefore will closely monitor labs with concomitant azathioprine use. 05/2019: Neg Hep B/C 07/2019: Neg QuantGold 09/2022 PrismRA 17.8 - 10% chance of responding to TNFi Assessment & Plan (12/27/2024 10:04 PM CDT): Will monitor routine labs while on immunosuppressive medication. Will check labs today. 05/2019: Neg Hep B/C 07/2019: Neg QuantGold 09/2022 PrismRA 17.8 - 10% chance of responding to TNFi Assessment & Plan (09/26/2024 11:07 AM CDT): Will monitor routine labs while on immunosuppressive medication. 05/2019: Neg Hep B/C 07/2019: Neg QuantGold 09/2022 PrismRA 17.8 - 10% chance of responding to TNFi Assessment & Plan (07/28/2024 1:35 PM FURNITURE SERVICER): Will monitor routine labs while on immunosuppressive medication. 05/2019: Neg Hep B/C 07/2019: Neg QuantGold 09/2022 PrismRA 17.8 - 10% chance of responding to TNFi Assessment & Plan (04/30/2024 2:18 PM FURNITURE SERVICER): Will monitor routine labs while on immunosuppressive medication. 05/2019: Neg Hep B/C 07/2019: Neg QuantGold 09/2022 PrismRA 17.8 - 10% chance of responding to TNFi Assessment & Plan (03/17/2024 8:58 AM CDT): Will monitor routine labs while on immunosuppressive medication. 05/2019: Neg Hep B/C 07/2019: Neg QuantGold 09/2022 PrismRA 17.8 - 10% chance of responding to TNFi Assessment & Plan (01/16/2024 8:20 AM CDT): Will monitor routine labs while on immunosuppressive medication. 05/2019: Neg Hep B/C 07/2019: Neg QuantGold 09/2022 PrismRA 17.8 - 10% chance of responding to TNFi Assessment & Plan (11/21/2023 11:28 AM CDT): Will monitor routine labs while on immunosuppressive medication. 05/2019: Neg Hep B/C 07/2019: Neg QuantGold 09/2022 PrismRA 17.8 - 10% chance of responding to TNFi Assessment & Plan (08/18/2023 12:46 PM CDT): Will monitor routine labs while on immunosuppressive medication. Recent CMP/CBC stable. 05/2019: Neg Hep B/C 07/2019: Neg QuantGold 09/2022 PrismRA 17.8 - 10% chance of responding to TNFi Assessment & Plan (05/14/2023 4:16 PM FURNITURE SERVICER): Will monitor routine labs while on immunosuppressive medication. Labs at next visit. 05/2019: Neg Hep B/C 07/2019: Neg QuantGold 09/2022 PrismRA 17.8 - 10% chance of responding to TNFi Assessment & Plan (04/08/2023 9:26 AM FURNITURE SERVICER): Will monitor routine labs while on immunosuppressive medication. 05/2019: Neg Hep B/C 07/2019: Neg QuantGold 09/2022 PrismRA 17.8 - 10% chance of responding to TNFi Assessment & Plan (03/04/2023 12:28 PM CDT): Will monitor routine labs while on immunosuppressive medication. Routine labs at next visit. 05/2019: Neg Hep B/C 07/2019: Neg QuantGold 09/2022 PrismRA 17.8 - 10% chance of responding to TNFi Assessment & Plan (01/23/2023 8:14 AM CDT): Will monitor routine labs while on immunosuppressive medication. 05/2019: Neg Hep B/C Assessment & Plan (09/16/2022 1:05 PM CDT): Will monitor routine labs while on immunosuppressive medication. 05/2019: Neg Hep B/C Assessment & Plan (06/18/2022 6:57 AM FURNITURE SERVICER): Will monitor routine labs while on immunosuppressive medication. Reviewed recent CMP/CBC - renal insufficiency stable. 05/2019: Neg Hep B/C Assessment & Plan (03/11/2022 1:55 PM CDT): Will monitor routine labs while on immunosuppressive medication. Reviewed recent CMP/CBC - renal insufficiency stable. 05/2019: Neg Hep B/C Assessment & Plan (11/05/2021 8:15 AM CDT): Will monitor routine labs while on immunosuppressive medication. 05/2019: Neg Hep B/C Assessment & Plan (08/06/2021 2:08 PM CDT): Will monitor routine labs while on immunosuppressive medication. 05/2019: Neg Hep B/C Assessment & Plan (06/04/2021 3:58 PM FURNITURE SERVICER): Will monitor routine labs while on immunosuppressive medication. 05/2019: Neg Hep B/C Proteinuria 03/14/2021 Assessment & Plan (04/26/2021 8:46 PM FURNITURE SERVICER): Seeing Dr. Espinosa. Proteinuria, kidney cysts, dizziness and muscle cramps. To get additional labs and a kidney US soon. Assessment & Plan (03/14/2021 9:38 PM CDT): Reportedly has protein in his urine. Reports frothy urine. Will give order for 24hr urine protein collection and refer to nephrology, also for elevated Cr work up. Recommend avoidance of all NSAIDs at this time. Elevated hemoglobin A1c 07/21/2020 Overview (07/24/2020): 06/2020 A1c 6.2 Assessment & Plan (07/28/2024 1:34 PM FURNITURE SERVICER): Had A1c drawn in April (unk provider, patient unaware of lab) that was 7.0. This may have been a mistake but given hx of elevated A1c will recheck A1c today and send results to PCP. Assessment & Plan (11/05/2021 12:38 PM CDT): Has not had A1c checked in over a year. On metformin 500mg ER once daily. Will check today. Assessment & Plan (07/21/2020 3:27 PM FURNITURE SERVICER): No follow up with PCP according to PT. Will check A1c as he was 6.5% at last visit. Educated patient about dangers of untreated/poor monitoring of T2DM. Seronegative rheumatoid arthritis 08/12/2019 Overview (09/25/2023): Previous workup: 10/2016: neg RF, NOAH, sed rate. 07/2017: TTEcho with mild pulmonic regurg, Grade 1 diastolic dysfunction 12/09: neg cxr, normal PFT +/- upper airway obstruction due to flattened inspiratory limb of flow volume loop cough 05/2019 labs: Neg HBV, HCV, Cr 1.33, Uric acid 8.5, AVISE: 1:80 NOAH speckled, anti-C1q IgG 11 08/12: QuantGold Neg, A1c 6.5 09/15: A1c 6.4, uric acid 8.2 12/2020: Neg HLA-B27 08/12 ECHO: Mildly increased left ventricular wall thickness. Grade 1 diastolic dysfunction. Trace pulmonic regurgitation. Mildly diated aortic root size at sinus of valsalva at 4.2cm. 09/2022 PrismRA 17.8 - 10% chance of responding to TNFi Left hand/wrist US (06/30/19): Mild effusions on examination which will have to be correlated clinically. Marked synovial thickening in the 3rd MCP and 2nd and 3rd PIP joints. Grade 2 effusion in the 2nd PIP joint. Grade 1 effusion in the wrist, 3rd MCP, and 3rd PIP joints. It is noted patient on tapering dose of prednisone from 20 mg daily which likely has affected the inflammatory process. Left hand/wrist US (08/04/20): 1) Mild/moderate effusions on examination which will have to be correlated clinically. 2) Marked synovial thickening in the 2nd, 4th, and 5th MCP and 2nd and 3rd PIP joints. 3) Grade 2 effusion in the 2nd PIP joint. 4) Grade 1 effusion in the wrist and 3rd PIP joint. 5) Small effusion in the 4th wrist compartment. 6) In comparison to previous US of the left hand/wrist from 06/30/19, there is increased synovial thickening in the MCP joints with decreased effusion in the 3rd MCP joint. Otherwise there is little change in the inflammatory process. 09/22/23 L hand/wrist US: The impression at this time is: 1) Grade 2 power Doppler in the 2nd MCP joint with spurring of the metacarpal head. 2) Grade 1 effusion and grade 1 power Doppler in the wrist. 3) Grade 1 effusion in the 4th wrist compartment and 2nd PIP joint. 4) Grade 1 power Doppler in the ulnar styloid. 5) Marked synovial thickening in the 2nd MCP and 2nd and 3rd PIP joints. Moderate synovial thickening in the 3rd-5th MCP joints. 6) Moderate spurring in the 1st CMC joint. 7) A mildly enlarged median nerve at 0.12cm2 is identified. *In comparison to previous US of the left hand/wrist from 08/04/20, there is new grade 2 power Doppler in the 2nd MCP joint and new small power Doppler in the wrist. Mild enlargement of the median nerve is also identified. 06/2019 xrays: -CXR: normal, cannot visualize 5mm pulmonary nodule in RML seen on prior CT -Left hand: Mild-mod joint space loss in 1-5th IP joints and 1st/2nd MCP joints, multiarticular OA -Right hand: Mild-mod joint space loss in 1-5th IP joints and 1st MCP OA w/moderate joint space loss and marginal osteophyte formation. Multiarticular OA 06/2020 labs: AVISE NOAH 38 by lianne only, c1q 86 07/2020 xrays: -Bilat hands: Old healed fracture of left 3rd metacarpal bone, mild polyarticular OA at hands/wrists -cspine: Anterior interbody fusion at C6-7 intact, moderate loss of the C5-6 disc height, overall moderate cervical arthropathy, evidence bilateral neural foraminal stenosis at C5 left at-6, compared to 2018 mild progression in the midcervical disc disease -Rt knee: mild OA of medial and patellofemoral compartments with tiny osteophytes, moderate sized joint effusion -Lt knee: Mild OA medial patellofemoral compartments with tiny osteophytes, small knee joint effusion -Rt foot: Mild 1st MTP primary OA, tiny juxta-articular erosions identified along volar medial aspect of 1st proximal phalanx with sclerotic margins, chronic appearing, nonspecific -Lt foot: unremarkable Assessment & Plan (03/02/2025 9:40 PM CDT): Completed a 30mg prednisone taper after last visit with noted benefit but did not continue any steroids due to elevated A1c. Still needs to see restaurant inspector as he is not on any T2DM medication. He also was approved for rituximab but due to scheduling issue has not been able to start the infusion and voices concern during today's visit for side effects, including risk for PML. Discussed exceedingly low risk for this infection (reported at 2.56 per 100,000 patients with RA per study 'Progressive multifocal leukoencephalopathy in rituximab-treated rheumatic diseases: a rare event') but patient remained concerned and therefore we discussed alternative remaining options including azathioprine. After reviewing azathioprine dosing as well as potential side effects and close monitoring when taken with allopurinol patient decided to try this medication. Will send out 50mg AZA to take daily and cancel upcoming rituximab infusion. Will check TPMT activity today. Return in 4 weeks for re-evaluation. Assessment & Plan (12/28/2024 4:42 PM CDT): Previously on Rinvoq, leflunomide and low dose prednisone daily but could not appreciate any improvement in his hand pain/swelling and was still experiencing difficulty obtaining Rinvoq through the specialty pharmacy and stopped all 3 medications recently. He has had worsening of his symptoms with joint pain now causing nocturnal awakening. Finds it difficult to fully extend/flex his left fingers. Fatigue is severe despite taking modafinil BID through Dr. Batista. Significant synovitis on exam. Discussed restarting leflunomide and prednisone as he appeared to be better controlled - he was amenable to restarted prednisone but not leflunomide. Given his poor response to TNF, orencia and Chris inhibitors with hx of diverticulitis the other remaining biologic option would be rituximab which he was willing to try. We reveiewed dosing and potential side effects again and he was agreeable to trying. Will restart prednisone with a 30mg taper. Labs at next visit including repeat RA panel. Return in 2 months, sooner if needed. Seen with Dr. Monroy. Assessment & Plan (09/27/2024 1:02 PM CDT): Began daily Rinvoq about 2 weeks ago and continued 20mg LEF daily. He was taking 5mg prednisone daily again after last visit with improvement in his fatigue/stamina/dyspnea symptoms but ran out a week ago with significant worsening of fatigue. Hands remain swollen with moderate amount of synovitis on exam. Discussed concern for daily low dose prednisone in the setting of recent A1c at 6.9 - he is not on any diabetic medications at this time and has not seen his PCP yet to discuss care. Will prescribe 5mg prednisone for prn/daily use but he must follow up with an restaurant inspector who may be able to evaluate his fatigue complaints as well. Continue 20mg LEF daily and 15mg Rinvoq daily to allow more time to take effect. Labs today. Return in 3 months, sooner if needed. Seen with Dr. Monroy. Assessment & Plan (07/28/2024 1:44 PM FURNITURE SERVICER): Approved for Rinvoq in 04/2024 but has not received it yet through [facility]. Remains on leflunomide daily. Continues to have joint pain but notes swelling today is better. Synovitis present on exam. Does have some fullness/induration of the right infrapatellar bursa (reportedly had bursitis last month). Will have him call to set up delivery for Rinvoq - paperwork/#s provided. Continue daily leflunomide. Offered to send to orthopedist for bursitis but he declined and will try his new knee pads first. Will check labs today. Per patient request will reduce cymbalta to 30mg daily and he can monitor for worsening joint pain. To return in [address] Vasquez for Dr. Monroy. Assessment & Plan (04/30/2024 2:22 PM FURNITURE SERVICER): Low PrismRA 17.8 - 10% TNF responder. 08/2023 repeat left hand/wrist US demonstrated slight worsening of inflammation as compared to the 07/2020 hand US jenelle of wrist and 2nd MCP joint. Off Orencia due to lack of response. Insurance denied rituximab requiring a trial with a TNFinh (simponi aria not on formulary). Began Humira in November and noted join benefit but has been off (cost vs insurance issues). Restarted leflunomide after last visit he had inadvertently stopped taking this. Notes reduction in his joint stiffness and pain with only about 15 minutes of morning stiffness at this time. Knees are also not as bothersome at this time. Require prednisone though he does have a script. Currently dealing with bilateral elbow pain, left worse than right, affecting ability to carry more than 10lbs and perform certain activities without pain. Synovitis present on exam with ttp of bilateral elbows but no evidence of epicondylitis. Continue 20mg leflunomide daily. He requested re-approval for Rinvoq 15mg daily through his new insurance as he noted benefit in the past with his joint symptoms - will start approval process. Recommend use of tennis elbow braces as he felt these reduced his pain. No need for elbow injection today. To return in 3-4 months, sooner if needed. Seen with Dr. Monroy. Assessment & Plan (03/17/2024 3:41 PM CDT): Low PrismRA 17.8 - 10% TNF responder. 08/2023 repeat left hand/wrist US demonstrated slight worsening of inflammation as compared to the 07/2020 hand US jenelle of wrist and 2nd MCP joint. Off Orencia due to lack of response. Insurance denied rituximab requiring a trial with a TNFinh (simponi aria not on formulary). Began Humira in November and noted join benefit but has been off for a while (cost?). To get new insurance on 03/26. Supposedly has not been taking leflunomide - cannot recall taking it for the better part of this past year. Began using Trelegy inhaler with noted improvement in his dyspnea/fatigue. Hands are swollen and appreciates pain with use, otherwise has decreased sensation in the distal aspects of his fingers. Will try to get approval for Humira through his new insurance starting 03/26. Will have him restart 20mg leflunomide and return in 6 weeks for evaluation/labs. If Humira is not covered we discussed trial of Simponi Aria which he was amenable to. Future option includes rituximab. *Due to burden of disease, will administer kenalog 100 mg IM injection, in office, today. 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 Assessment & Plan (01/16/2024 3:05 PM CDT): Low PrismRA 17.8 - 10% TNF responder. 08/2023 repeat left hand/wrist US demonstrated slight worsening of inflammation as compared to the 07/2020 hand US jenelle of wrist and 2nd MCP joint. Off Orencia due to lack of response. Insurance denied rituximab requiring a trial with a TNFinh (simponi aria not on formulary). Remains on 20mg leflunomide daily and began Humira SQ q2 weeks in early November - notes delay of 24hrs before reduction in joint pain is appreciated but this only lasts for 2 days before returning to baseline. He has been taking 5mg prednisone prn. Still with HALL and muscle fatigue. To see Dr. Renee soon. Saw Dr Batista and tried Requip but had increased sporadic limb movements and discontinued. Minimal amount of synovitis on exam. Will have him continue SQ Humira q2 weeks for now - may consider increasing frequency to weekly dosing if he starts to notice more effect. Otherwise if no appreciable improvement in 2 more months will have him discontinue and try to get rituximab approved again. Continue leflunomide daily and prednisone prn. He was amenable to the plan. Routine labs today. Return in [address] Monroy. Assessment & Plan (11/21/2023 4:26 PM CDT): Low PrismRA 17.8 - 10% TNF responder. Recent repeat left hand/wrist US demonstrated slight worsening of inflammation as compared to the 07/2020 hand US jenelle of wrist and 2nd MCP joint. Remains on 20mg leflunomide daily - stopped Orencia injections about 6 weeks ago due to lack of effect. Insurance denied rituximab and simponi aria is not formulary and thus has not been approved. Patient has been experiencing increased joint discomfort and swelling with hours of AM hand swelling/stiffness and was sent 5mg prednisone daily with lessening of symptoms. Discussed seeking approval for 40mg Humira SQ q2 weeks which is an approved medication per recent insurance coverage paperwork and he was amenable to the plan. Provided 2 Humira samples to get him started while we start approval paperwork. If no benefit after 4 months will try again for rituximab approval. To check labs at next visit. Return in 2 months, sooner if needed. Assessment & Plan (09/25/2023 4:06 PM CDT): Low PrismRA 17.8 - 10% TNF responder. Remains on Orencia injections, 20mg leflunomide daily and amantadine 100mg daily (through Dr. Batista). Recent repeat left hand/wrist US demonstrated slight worsening of inflammation as compared to the 07/2020 hand US jenelle of wrist and 2nd MCP joint. Patient has been experiencing increased joint discomfort and swelling with hours of AM hand swelling/stiffness. Symptoms are making it challenging to perform his job. Marked amount of synovitis on exam today. Discussed remaining biologic options which include xeljanz or rituximab - avoiding IL6 inhibitors as he has a history of chronic diverticulitis. He declined xeljanz given the problems he had with obtaining monthly rinvoq. Reviewed the potential side effects of rituximab, including PML, as well as dosing regimen. He was amenable to try it. Recommend getting any vaccines 2 weeks before starting the infusion. He may continue leflunomide and orencia injections but stop the injections 1 week prior to starting rituximab. Will start approval process for medication and call to schedule if approved. To check routine labs 2 weeks after his 2nd rituximab infusion. If he were to apply for disability recommend he send the forms to our office. Will send out prednisone taper to address current symptoms while he waits to start infusion. Return in [address] Monroy. Assessment & Plan (08/18/2023 12:48 PM CDT): Low PrismRA 17.8 - 10% TNF responder. Remains on Orencia injections, 20mg leflunomide daily and amantadine 100mg daily (through Dr. Batista). He was on 5mg prednisone daily for the last several months but ran out on Friday with slight increase in joint stiffness but no worsening in joint pain yet. Mild amount of synovitis on exam. To continue Orencia weekly injections and 20mg leflunomide daily. Encouraged patient to call/return to office if he starts to note worsening joint symptoms off of prednisone and we would re-evaluate him. At this time would prefer to remain off steroids given his pre-DM diagnosis and age. To return in 3 months, sooner if needed. Assessment & Plan (05/14/2023 4:20 PM FURNITURE SERVICER): Low PrismRA 17.8 - 10% TNF responder. Remains on Orencia injections, 20mg leflunomide daily and amantadine 100mg daily (through Dr. Batista). He was given a slow prednisone taper following last visit in which he remained on 5mg prednisone daily with significant improvement in his joint stiffness, swelling, stamina and breathing. He is requesting to remain on 5mg prednisone daily as part of his regimen and wondering if he can come off leflunomide. No synovitis on exam today. We had a long discussion about the pros/cons of continuing steroid therapy and that goal should be to optimize his RA therapy with prednisone use as a bridge only therapy. In the end he agreed to try IV orencia and continue 20mg leflunomide daily and will remain on 5mg prednisone for now with re-evaluation of joints at next visit. To return in 3 months, sooner if needed. Seen with Dr. Monroy. Assessment & Plan (04/08/2023 2:14 PM FURNITURE SERVICER): Low PrismRA 17.8 - 10% TNF responder. Continued Orencia injections and amantadine 100mg daily (through Dr. Batista) since last visit. Called office mid February with worsening joint and began 20mg leflunomide once daily and was also sent a prednisone taper that offered moderate benefit but symptoms returned once he completed taper. Is tolerating leflunomide well but continues to have hand swelling worse in the AM (phone image) with associated stiffness and some discomfort. Right elbow, shoulders, low back and knee are also sore. Synovitis present of bilateral hands, L>R. To continue 20mg leflunomide daily to allow more time to take effect. Discussed option to try IV Orencia to see if he would note better coverage as he reports 2-3 days of benefit following each injection and he agreed, will check insurance coverage. Meanwhile to continue weekly Orencia SQ. Will send out a 30d prednisone bridge to address his symptoms in the interim. Labs today including vitamin D. Could also consider MRI of lumbar or SI joints to evaluate for signs of inflammation. Return in 6 weeks. Question if he could be a spondyloarthritis. Discussed with Dr. Kasper. Assessment & Plan (03/04/2023 12:34 PM CDT): Low PrismRA 17.8 - 10% TNF responder. Continued Orencia injections and amantadine 100mg daily (through Dr. Batista) since last visit. Also started vitamin D drops (low at 30 on recent testing), Tylenol and stopped NSAIDs. Notes significant improvement in his general muscle, stamina and fatigue complaints but continues to wake up with swollen, stiff, painful hands that eventually improves throughout the day. Moderate synovitis present on exam. To continue weekly Orencia injections to allow more times take effect as he is only been on this for about 2 and half months. Given his continued symptoms we discussed initiating treatment with leflunomide and reviewed the potential side effects, however at this time he would prefer to continue current treatment plan as he feels the best he has felt this year. Will monitor his symptoms. Consider repeat Left hand/wrist US at next visit if synovitis/symptoms persist and he does not wish to add another medication. Labs at next visit. Return in 3 months, sooner if needed. Assessment & Plan (01/23/2023 8:32 AM CDT): Low PrismRA 17.8 - 10% TNF responder. Began Orencia injections and amantadine 100mg daily (through Dr. Batista) about 4.5 weeks ago with improvement in his muscle fatigue/pain symptoms but he ran out of amantadine about a week ago, was off for 5 days before new script was sent in and symptoms have since returned. Reports moderate fatigue/weakness with simple exertion. Hands have been more swollen but not painful. Moderate amount of synovitis on exam. Will have him continue Orencia weekly injections to allow more time to take effect. Encouraged him to call Dr. Batista to discuss amantadine dose - per prior note it can be titrated up as needed/tolerated. Will check labs today, including TSH and Vitamin D (he stopped his daily 5k supplement). To return in 4 weeks for re-evaluation following his discussion with Dr. Batista. Seen with Dr. Monroy. Assessment & Plan (09/16/2022 1:02 PM CDT): Remains off Rinvoq due to insurance/shipment errors and does not wish to pursue that medication any more. Joints are more stiff/sore. Taking 500mg Tylenol BID for pain. His dyspnea continues to be his main concern and disability. There is moderate synovitis of the bilateral hands on exam. Would like to obtain a PrismRA test to determine if he would benefit from TNFi. Discussed possible biologic options including TNFi, Orencia or IL6 inhibitors and reviewed potential side effects. He was amenable with the plan - will call once PrismRA test results are back to determine which biologic class of medications to start with. Routine labs today. Return in [address] Monroy. Assessment & Plan (06/18/2022 7:06 AM FURNITURE SERVICER): CDAI 35, high Previously on Rinvoq 15mg daily (off since late Dec/early Jan) with stable RA symptoms however there was an account issue through the patient portal/assistance program and this was discontinued. He did not qualify for assistance with [employer] and is requesting to go back onto Rinvoq. Failed MTX. Significant amount of synovitis on exam today with several tender peripheral joints. Left medial epicondylitis present. Will check insurance approval and re-enroll patient into Rinvoq patient assistance. He has 1 months worth of Rinvoq samples at home he can start. Discussed reduction of repetitive movements of left elbow - will monitor for improvement once he is stably on Rinvoq - may require PT. Will check CBC/CMP today. Return in 3 months., sooner if needed. Assessment & Plan (03/12/2022 9:56 AM CDT): CDAI 20, high moderate Patient was on Rinvoq until early last month when this was stopped due to insurance and specialty pharmacy issues. He had been having difficulty getting monthly supply of Rinvoq - spending about an hour on the phone every month and was found to have had two accounts under specialty pharmacy causing the issue. This is currently being worked on but he has remained off Rinvoq for the better part of 6 weeks and notes increase in joint pain affecting his hands, elbows, shoulders and knees. There is synovitis of the bilateral hands present on exam. Will provide 1 month of 15mg Rinvoq samples so he can become reestablished on the medication. Reviewed recent labs ordered by his PCP (reviewed on patient's cell phone - CBC/CMP stable with continued 1.3 Cr). Encouraged avoidance of NSAIDs due to renal insufficiency. To return in 3 months. Sooner if needed. Assessment & Plan (11/05/2021 12:37 PM CDT): Reports joints are stable on rinvoq 15mg once daily (was off for 2 weeks due to pharmacy issue and had increase in joint stiffness/pain). 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 Synovitis present of the bilateral hands with decreased sensations of the fingers per patient. With slight increase in synovitis on exam from last visit and right ankle pain discussed option for a 100mg systemic kenalog injection in office today, which he would appreciate - knows to monitor blood sugars. Continue 15mg rinvoq once daily. Routine labs today. Return in 4 months. Sooner if needed. Assessment & Plan (08/06/2021 2:32 PM CDT): Reports joints are stable on rinvoq 15mg once daily. Did receive a cortisone injection into right ankle recently with improvement. Slight fullness of several joints on exam with ttp of the right ankle. Decreased sensations of the fingers per patient. Continue 15mg rinvoq once daily. Will await the results of his neurology and pulmonology work ups. Routine labs today. Return in 3 months. Sooner if needed. Seen with Dr. Monroy. Assessment & Plan (06/04/2021 3:56 PM FURNITURE SERVICER): Joints are stable on rinvoq 15mg once daily. Repeat Cr level . No synovitis on exam today. Xeljanz has been shown to cause an increase in Cr levels but rinvoq is less likely to induce this elevation - recent Cr was back to normal level. Continue 15mg rinvoq once daily. Routine labs today. Return in 3 months. Sooner if needed. Assessment & Plan (04/26/2021 10:09 PM FURNITURE SERVICER): Joints are stable on rinvoq 15mg once daily. Did see supervisor pipe manufacture 2 weeks ago for additional calve injections with relief of foot pain. Also notes increased energy since that time. Experiences few minutes of AM joint stiffness that resolves after a shower. Tendons are sore in the AM and he has difficulty with descending stairs. Some synovitis on exam without joint tenderness. CDAI 7. Xeljanz has been shown to cause an increase in Cr levels but rinvoq is less likely to induce this elevation. Will monitor at this time. Continue 15mg rinvoq once daily. Routine labs at next visit. Return in 3 months. Sooner if needed. Assessment & Plan (03/14/2021 9:40 PM CDT): Joints are stable on rinvoq 15mg once daily, aside from right great toe and left lateral foot which he will be following up with podiatry again soon for an injection. Creatinine function has risen from 1.2 in December to 1.4 currently. Xeljanz has been shown to cause an increase in Cr levels but rinvoq is less likely to induce this elevation. Will monitor with consideration to hold medication for 2 weeks and repeat labs for further evaluation of etiology of Cr elevation. He is ok from our standpoint to receive another foot injection with full dose toradol. Assessment & Plan (02/26/2021 3:20 PM CDT): Began 15 mg rinvoq after last visit and notes modest improvement in joint pain but continues to experience myalgias. Continues to see Dr. Zepeda for foot/ankle pain. Still on Febuxostat 40mg once daily as well as colchicine. Minimal amount of synovitis and joint tenderness on exam. Continue 15mg Rinvoq once daily. Encouraged him to get the Shingrex vaccines. Reviewed labs from 01/23/2021 and will repeat creatinine function, CBC, ESR, CRP. Return in 3 months. Sooner if needed. Seen with Dr. Monroy. Assessment & Plan (12/26/2020 2:17 PM CDT): Since last visit he tried 1 dose of oral MTX and experienced subsequent nausea and 'flu-like' symptoms and did not try it again. He was unable to manipulate the injectable MTX version. Still hurting, especially left foot. Saw Foot/Ankle orthopedist twice over last month with repeat left foot xray (told there was inflammation present) and a uric acid level of 6.1. Started on Febuxostat 40mg once daily as well as colchicine and Medrol Dosepak. After steroids notes slight improvement in left foot pain however swelling and erythema persists. There is limited ROM of lower back with obvious swelling, erythema and mild ttp of left 1st MTP joint. Still with synovitis of the right hand joints as well. Negative right leg Dawn's sign. Suspect the left 1st MTP joint symptoms are due to inflammation and not gout as there was no resolution of symptoms after colchicine treatment and slow improvement on prednisone. Will request recent xray as well as labs. No concern for DVTs at this time without calf enlargement, negative Dawn's sign and no erythema. As he had poor tolerance of MTX, failed NSAIDs and has reportedly lower kidney function and continued synovitis on exam would recommend initiating treatment with Rinvoq 15mg once daily and reviewed the potential side effects including but not limited to URIs, nausea, elevated LFTs and anemias. He was interested in this medication after seeing it advertised and is amenable to the plan. Encouraged him to get the State. Will start approval process for the medication. Given his tendon involvement and oligoarthralgia, he may be a spondyloarthritis and not seronegative RA - will continue to monitor for symptoms that would better differentiate these two diagnoses. Return in 2 months. Sooner if needed. Seen with Dr. Monroy. Assessment & Plan (08/10/2020 8:06 AM CDT): Repeat serologies were positive for c1q antibody at 86 with +NOAH by lianne only. Repeat left hand/wrist US revealed mild/moderate effusions and activity with increase in synovial thickening as compared to 06/2019 imaging. Radiographic imaging of the hands, cpsine and knees demonstrated OA changes with a right foot xray revealing a chronic nonspecific erosion at the 1st proximal phalanx, left foot unremarkable. Synovitis present on joint exam with tenderness. Still appears to have a seronegative RA given US findings, synovitis on exam, joint stiffness and symmetric appearance of joint involvement. Recent knee swelling could be RA flare as it does not sound like typical gout due to lack of pain to the touch. Recommend initiating treatment with 12.5mg MTX once weekly and 1mg folic acid daily. Patient reminded of the side effects of the medication, including but not limited to increased risk of infection, GI upset, increased LFTs, mouth sores, rash, diarrhea, and/or blood count abnormalities. Discussed that this medication can take upwards of 3 months before joint improvement is noticeable and the dosage will be increased at each subsequent visit until symptoms are controlled or the maximum dose of 20mg is achieved. Pt was amenable to the plan but requested injectable MTX - will send to pharmacy. Return in 4 weeks. Sooner if needed. Discussed with Dr. Monroy. Left knee was further evaluated by Dr. Vasquez with recommendations to avoid aspiration as he is to go on vacation with potential [place] exposure and the knee is improving with conservative measures - continue Tylenol 500mg 1-2 times daily as well as Diclofenac 75mg BID. Assessment & Plan (07/21/2020 3:29 PM FURNITURE SERVICER): Here to re-establish care/workup. Continues to have joint pain with AM joint stiffness and gelling effect. Still with dyspnea and fatigue symptoms. Saw ENT for dysphagia and told there was 'inflammation' seen on scope but was not given a cause and no follow up. Off prilosec. Off prednisone. Aleve every morning. Synovitis present on exam with tenderness of several joints. Will obtain repeat left hand US, radiographs (feet, hands, knees, cspine - due to paresthesias) and serologies. Return in [address] Monroy. Assessment & Plan (10/07/2019 2:30 PM CDT): CDAI 7. Patient has not started methotrexate yet due to fear of fatigue side effect and questioning the diagnosis. At last visit he was experiencing redness and swelling of his right knee followed by pain/swelling in his right foot. He was given a prednisone taper pack that reduced the swelling but not the pain. Tramadol was prescribed but only made him drowsy without pain improvement so he stopped taking it. Saw orthopedic surgeon who found a bone chip in his right ankle and injected the area with steroid which resolved his pain. He also established care with a new PCP and was started on 100mg allopurinol once daily. He continues to experience right foot discomfort especially around the base of his toes. Followed up with Dr. Renee - unable to get PFTs due to pandemic. Was given albuterol inhaler but states he used it once without effect. On exam there is some synovitis of the hands without tenderness and minimal discomfort with palpation of the right 1-5 MTP joints without dafne swelling/erythema. Some LE edema without pitting present. FROM of right ankle without crepitus or pain. 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 Gout vs hyperuricemia is still on the differential. Patient verbalized understanding and is willing to try MTX. Suggested to start MTX 12.5mg once weekly on Fridays to avoid the potential of fatigue SE affecting his work and 1mg folic acid daily. Continue 100mg allopurinol once daily. Will check 14.3.3 next time. Return in 4 weeks. Sooner if needed. Seen with Dr. Monroy. Assessment & Plan (09/07/2019 5:26 PM CDT): Patient did not start the methotrexate due to fear of getting COVID19 while on medication. Counseled patient on the medication and safety profile. He continues to have hand stiffness but denies current hand pain. Continues to experience dyspnea and followed up with Dr. Renee who believes he may have underlying asthma - is unable to perform PFTs at this time due to pandemic. However he began to experience right knee discomfort with moderate swelling that began last . He had a prednisone script that he filled and began taking Friday night and reports the swelling went down but his right foot then began to ache, however it did not swell. Denies redness of the knee and ankle as well as heat. On exam there is some swelling noted along the lateral aspect of the right knee with FROM and no tenderness to palpation. Negative McMurrays and negative anterior/posterior drawer tests. Bilateral calves are 16.5 in circumference without tenderness or warmth to palpation. The right ankle is tender to palpation along anterior aspect of medial malleolus with some synovitis appreciated. FROM of ankle with pain on dorsiflexion. Concern for inflammatory arthritis causing pain vs gout flare, although less likely due to lack of erythema/heat. Prednisone did improve swelling. Continue prednisone taper pack. Start methotrexate 12.5mg once weekly, 1mg folic acid daily. He was strongly encouraged to establish care with a PCP due to elevated A1c and use of prednisone. Return in 4 weeks. Sooner if needed. Seen with Dr. Monroy. Assessment & Plan (08/12/2019 12:35 PM CDT): Patient continues to experience arthralgias and stiffness in his hands and lately has been having increasing pain in his knees. Recent serologies were positive for an NOAH 1:80. Xrays of the hands showed mild-moderate OA changes without erosions. Left hand US demonstrated 06/30/19: Marked synovial thickening in the 3rd MCP and 2nd and 3rd PIP joints, Grade 2 effusion in the 2nd PIP joint, Grade 1 effusion in the wrist, 3rd MCP, and 3rd PIP joints - It is noted patient on tapering dose of prednisone from 20 mg daily which likely has affected the inflammatory process. On exam there is moderate synovitis of the hands with tenderness. Work up and symptoms correlate with a diagnosis of seronegative RA. Discussed initiating methotrexate and advised of the side effects of the medication, including but not limited to increased risk of infection, GI upset, increased LFTs, mouth sores, rash, diarrhea, and/or blood count abnormalities. Pt amenable to plan. Handouts provided about RA and MTX. Start methotrexate 12.5mg once weekly, 1mg folic acid daily. Will recheck labs today due to abnormal findings secondary to steroid use at initial visit. Return in 4 weeks. Sooner if needed. Seen with Dr. Monroy. Myalgia 07/07/2019 Overview (08/16/2019): 08/12: normal B12, Mg, GAD65, A1c 6.5 Assessment & Plan (06/18/2022 7:05 AM FURNITURE SERVICER): Following with Dr. Lemons. Off mestinon. To start new drug regimen soon. Assessment & Plan (11/05/2021 12:42 PM CDT): Following with Dr. Batista - has had EMG, labs, Tilt table test. 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 Suspected to have dysautonomia either from his DM or potentially MG. He was started on 60mg Cymbalta and 60mg Mestinon - which was recently increased to 60mg TID with modest benefit towards his energy level and muscle fatigue. To follow up with Dr. Batista in early November. Assessment & Plan (08/06/2021 2:22 PM CDT): Still notes muscle pain and easy fatigability. Saw Dr. Lemons with labs performed and getting EMGs of lower extremities soon. Told he has neuropathies of the LE and there is concern for dysautonomia vs metabolic myopathy and NMJ. Continue to follow up with Dr. Lemons. Assessment & Plan (04/26/2021 10:11 PM FURNITURE SERVICER): Continues to experience muscle cramping throughout body - midthoracic back, neck, thighs. Recent Mg levels were normal at 1.7 as were CK, aldolase and LDH. No strength deficit on exam. Has not been able to get EMGs of LE scheduled yet. As his muscle enzymes and ESR/CRP were wnl it is very unlikely he could have an underlying myositis. Encouraged follow up with Dr. Batista neurologist (has referral). Assessment & Plan (03/14/2021 9:35 PM CDT): Continues to experience muscle cramping throughout body - midthoracic back, neck, thighs. Recent Mg levels were normal at 1.7 as were CK, aldolase and LDH. No strength deficit on exam. Will order EMGs of LE as thigh cramping/burning is reportedly the most problematic. As his muscle enzymes and ESR/CRP were wnl it is very unlikely he could have an underlying myositis. Additionally will provide referral to neurology for additional evaluation. Assessment & Plan (02/26/2021 1:01 PM CDT): Continues to experience muscle cramping in upper shoulders, thoracic region and bilateral calves. Recent M levels were normal at 1.7. No strength deficit on exam with mild ttp of the left mid gastrocnemius muscle bed. Will recheck muscle enzymes today. Assessment & Plan (08/12/2019 12:04 PM CDT): Pt is borderline prediabetic, with last A1c at 5.5 in 03/11 and 6.3 in 11/09. Continues to note migrating myalgias where he feels like his muscles get 'locked up'. Denies weakness and 5/5 BUE/BLE muscle strength on exam. Will order a glutamic acid decarboxylase (GAD65) to rule out stiff person syndrome as well as B12, magnesium and A1c. Assessment & Plan (07/07/2019 3:16 PM FURNITURE SERVICER): Pt is borderline prediabetic, with last A1c at 5.5 in 03/11 and 6.3 in 11/09. Notes migrating myalgias where he feels like his muscles get 'locked up'. Will order a glutamic acid decarboxylase (GAD65) to rule out stiff person syndrome. Dyspnea 06/23/2019 Overview (10/28/2022): 07/2017: TTEcho with mild pulmonic regurg, Grade 1 diastolic dysfunction, stress test was? 12/09: neg cxr, normal PFT +/- upper airway obstruction due to flattened inspiratory limb of flow volume loop cough 10/2022 CT chest w/o: renal calculi. Degenerative changes throughout mid and lower thoracic spine. Unremarkable pulmonary parenchyma without hilar adenopathy. Assessment & Plan (08/18/2023 12:52 PM CDT): Still with moderate HALL and recently was seen in ER for 3d of persistent sternal chest pain. He had follow up the next day with his new bell neck hammerer Dr. Foley who ordered a TTE and L heart cath that showed mild ascending aortic dilation and mild regurgitation of the aortic, mitral and pulmonic valves. Reportedly the cath showed 60% occlusion in an artery but he was told this was not significant enough to stent at this time. He has ABIs planned for September (reports leg pain with use that resolves with laying down) and to follow up with bell neck hammerer in 2 weeks. He denies any reduction in symptoms when he was taking prednisone. Also now on imdur, amlodipine, zetia and rosuvastatin for HTN and HLD. Assessment & Plan (09/16/2022 12:57 PM CDT): Continues to have moderate dyspnea with simple exertion. TTE in 2018 with mild pulmonic regurgitation and no right atrial enlargement. Reports he had a stress test 2 years ago and told he needed to see a business advisor. Continues to see Dr. Renee and was told he has asthma but no benefit with inhalers and reports recent PFTs. Has not had a CT chest and last CXR was 2019 and was unremarkable. Will order CT chest scan. Assessment & Plan (11/05/2021 12:39 PM CDT): Seeing Dr. Renee - to get PFTs soon. Per Víctor' note he suspects more of a neuromuscular etiology to his dyspnea complaints. Assessment & Plan (08/06/2021 2:15 PM CDT): Continues to experience dyspnea with simple activities. Experiences dizziness as well. No adventitious breath sounds on exam. To see Dr. Renee this week for additional work up. Assessment & Plan (06/04/2021 3:58 PM FURNITURE SERVICER): Continues to experience dyspnea with simple activities. No adventitious breath sounds on exam. Has not seen Dr. Renee nor gotten his PFTs performed due to pandemic. Will provide another order for PFTs and encouraged him to follow up with Dr. Renee. Assessment & Plan (03/14/2021 9:36 PM CDT): Patient believes his dyspnea is likely more due to his muscle fatigue. He has not seen Dr. Renee nor had PFTs taken. Will give order for PFTs/CXR to rule out pulmonary involvement in his dyspnea following simple activities. Assessment & Plan (12/26/2020 1:59 PM CDT): Recommend follow up with Dr. Renee for potential PFTs and further investigation of his symptoms in the context of his inflammatory arthritis. Assessment & Plan (08/12/2019 1:13 PM CDT): Is seeing Dr. Renee and will be getting a PFT soon. Had an echo performed earlier this month that was unremarkable according to the patient. Will try to obtain results from [facility]. Assessment & Plan (07/07/2019 3:22 PM FURNITURE SERVICER): Pt still with persistent SOB. Normal breath sounds on auscultation today. Results of prior echo and PFTs were obtained from [facility] with some mild findings but were performed in early 2018 (see above). Will repeat CXR, PFTs and TTE. Will also refer Pt to Dr. Renee for further evaluation of continued dyspnea. Return in 1 month. Will discuss results and potential treatment plan at that time. Assessment & Plan (06/23/2019 4:10 PM FURNITURE SERVICER): Pt has had increasing dyspnea over the past few years, worsened with exertion. Per Pt he has had an extensive work up, including an echocardiogram, stress test, CXR, PFTs and sleep study, which were all found to be negative. Several of the tests were performed at [facility] in [facility] [address]. Unable to view these results, therefore will repeat a CXR, request results and check serologies. Follow up in 3 weeks. Gout of multiple sites 04/07/2018 Overview (07/07/2019): US right foot/ankle (04/01/17): No obvious acute inflammatory changes seen. Cortical irregularity was see in the 2nd metatarsal which may represent an erosive change. No obvious urate icing seen although this does not rule out gout. An enlarged plantar fascia was observed. Previous on allopurinol although pt self DC'd as wanted to limit meds Assessment & Plan (12/28/2024 4:03 PM CDT): On 300mg allopurinol once daily with uric acid at 5.5 in July. Denies any recent gout flare ups. Continue current allopurinol dose. Assessment & Plan (07/28/2024 1:39 PM FURNITURE SERVICER): On 300mg allopurinol once daily with gout flare last month affecting right great toe. Also developed right infrapatellar bursitis. Saw his supervisor pipe manufacture and received a steroid injection along the gastrocnemius muscle bed (per patient) with resolution of flare up. Will check uric acid again today - last was 5.9 in April 2024. Continue current allopurinol dose. Assessment & Plan (04/30/2024 2:18 PM FURNITURE SERVICER): Stable on 300mg allopurinol once daily without recurrence of gout flares. Will check uric acid level today. Assessment & Plan (08/18/2023 12:46 PM CDT): Stable on 300mg allopurinol once daily without recurrence of gout flares. Assessment & Plan (06/18/2022 6:57 AM FURNITURE SERVICER): Remains on 300mg allopurinol once daily without recurrence of gout flares. Will check uric acid level today. Assessment & Plan (03/12/2022 9:57 AM CDT): Remains on 300mg allopurinol once daily with stable symptoms. Assessment & Plan (11/05/2021 12:34 PM CDT): Has not had maintenance uric acid level checked in over a year. Still on 300mg allopurinol, no flares recently. Will check level today. Assessment & Plan (07/07/2019 3:17 PM FURNITURE SERVICER): See above Assessment & Plan (06/23/2019 1:16 PM FURNITURE SERVICER): Previous Dr. Monroy Pt but seen with Dr. Kasper Assessment & Plan (04/07/2018 5:37 PM FURNITURE SERVICER): He did have a flare-up involving his left big toe over 1 week ago with significant pain, swelling, erythema, and warmth. Pain was severe enough he had a difficult time ambulating. He did call the office and prednisone 20 mg daily for 5 days was initiated which essentially resolved his complaints. He last took prednisone yesterday and continues to do well although there is still some mild tenderness and swelling involving the left 1st MTP joint on exam today. It is noted this this his 2nd flare up in the last 12 months. Last uric acid was 7.6 per labs in May. I discussed with him starting a monosodium urate lowering medication although he wants to defer this at this time to limit medications. He does report if his flare-ups do occur more frequent he will consider this although would like to treat symptomatically at this time. Will defer any specific treatment although can treat additional flare-ups with prednisone as needed. Will follow-up as needed. 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 Assessment & Plan (06/04/2021 4:09 PM FURNITURE SERVICER): Continues to have recurrent ankle/foot pain and sees his supervisor pipe manufacture regularly with combination toradol:steroid shots into the backs of his calves with complete relief of ankle/tendon pain. Recent flare up following abdominal hernia repair and was unable to ambulate - first affecting left ankle and then right. PCP office suggested colchicine 1.2mg and then 0.6mg qhour until he experiences GI symptoms - tried this 2 different days without resolution of pain. MRI in 2019 demonstrated partial thickness tear of inframalleolar portion of peroneus brevis tendon and OA changes. There is fullness and tenderness appreciated over peroneal tendon and ttp of the neville- medial ankle. Suggested a course of PT but patient declined. Discussed obtaining an updated MRI of the foot and seeing his machine operator hop picker for another opinion. Explained that tendinitis is not caused by RA (although rinvoq is now approved for PsA which is known to cause enthesitis and therefore if his tendon issues were due to an AI disease he should get benefit from rinvoq) and therefore he should follow up with orthopedist and supervisor pipe manufacture. Seen with Dr. Monroy. Assessment & Plan (08/12/2019 12:29 PM CDT): Following with podiatry. 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 He was given a steroid injection into his heel and prescribed diclofenac which provided moderate pain relief. Blood work demonstrated uric acid level of 8.5. At this time will not initiate treatment as he is starting methotrexate for SNRA. Will address at subsequent visit and may consider initiating allopurinol. May also consider leflunomide if methotrexate is not tolerable as it has some uric acid lowering activity. Assessment & Plan (06/23/2019 4:22 PM FURNITURE SERVICER): Pt previously seen by Dr. Monroy. 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 04/11 R foot US was negative for synovial thickening/icing. Has had 6 days of R foot swelling and redness with point tenderness over anterior ankle joint and lateral dorsal foot, similar to prior flares. Went to supervisor pipe manufacture Friday with negative xrays and received cortisone shot to dorsum of foot for possible 'capsulitis' without improvement. Took 20mg prednisone last night with some improvement this morning. Reports 1-2 additional flares since 2017 but was able to manage symptoms with OTC medications until this current episode. Hx of elevated LFTs and renal function but no current labs. Will initiate prednisone taper pack (20mg x5d, 15mg x5d, 10mg x5d, 5mg x5d) due to unknown liver/renal function at this time. Pt does not wish to start allopurinol as he was told by his PCP that it can elevate BP. Discussed that this is not the case but will not start at this time due to hx of abnormal LFTs and renal function. Will obtain uric acid, CBC, CMP, ESR and CRP labs at this time, although uric acid may be normal if concentrating in joint space. Seen with Dr. Kasper. Assessment & Plan (06/26/2017 5:39 PM FURNITURE SERVICER): Had abrupt onset over dorsum of right foot 6 days ago. Has had difficult time ambulating due to pain. Pt denies any trauma. Pain is severe and associated with swelling, erythema, warmth seen on exam. Had seen podiatry earlier this week which xray foot was wnl per pt report. Uric acid was 7.6 per pt. Symptoms are similar to previous right foot flare up 6 months ago. I suspect gout vs CPPD based on abrupt pain, swelling, erythema, warmth with similar episode in same foot 6 months ago. Uric acid 7.6 although this is difficult to appreciate as uric acid is often decreased during a flare up due to distribution of uric acid in joint. Has synovitis over dorsum of right foot although based on location of swelling an arthrocentesis for synovial fluid analysis would be difficult to obtain fluid. 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 Will start prednisone 50 mg daily for 2 days and decrease by 10 mg q2 days until off. May benefit from a urate lowering medication such as allopurinol when flare up resolves. Will try to obtain recent labs drawn by Dr. Treadwell. Pt to call to let us know how he is doing and for follow up appointment. 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 Area is warm, swollen and exquisitely tender to the touch. He has an MRI scheduled for 07/15 for further evaluation. He increased his prednisone to 30mg on day 3 as he was having no relief with initial 20mg, and has been decreasing by 5mg every few days - now almost out of tablets. In the past he has use a steroid taper starting at 60mg and had relief with that higher dose - therefore will give script for 60mg prednisone tapering by 10mg q3 days. Requested Pt to have MRI results sent to the office. Still with moderate synovitis of bilateral hands on exam today. Reviewed labs/US results and discussed the possibility of an underlying inflammatory arthritis. Pt will be getting xrays of hands/feet completed before his next visit and will discuss potential treatment plan at that time. Will follow up in [address] Kasper. Assessment & Plan (06/23/2019 4:32 PM FURNITURE SERVICER): In 10/2016 Pt was seen by PCP and reported AM arthralgias of multiple locations without swelling/erythema on exam per note. PCP checked RF/NOAH/sed rate and at that time were found to be negative. Since that time Pt has had continued bilateral hand discomfort and knee pain with moderate synovitis of multiple joints of the hands noted on exam. Reports AM stiffness lasting several minutes, improved with heat and movement. Has developed xerostomia over the past 8 months and reports over 5 years of fatigue without a known cause - normal TSH in the past. These symptoms coupled with a close FH of lupus raises concern for potential underlying CTD vs inflammatory arthritis. Will recheck serologies, including AVISE, as well as xrays and US due to extensive synovitis found on exam. It should be noted that Pt already took 40mg of prednisone last night and therefore US results may be altered if there is an underlying inflammatory process occuring. Follow up in 3 weeks. Sooner if needed. Polyarthralgia 03/18/2017 04/07/2018 Overview (04/03/2017): US right foot/ankle (04/01/17): No obvious acute inflammatory changes seen. Cortical irregularity was see in the 2nd metatarsal which may represent an erosive change. No obvious urate icing seen although this does not rule out gout. An enlarged plantar fascia was observed. Assessment & Plan (04/10/2017 11:46 AM FURNITURE SERVICER): Continues to do well with no recurrence of joint pain. Does have occasional pain in toes with extension while he is working on his knees and toes are extended although pain not severe and not similar to previous flare up. Serology unremarkable for an obvious inflammatory arthritis. Is noted uric acid 7.8. US right foot/ankle did not reveal any obvious inflammatory changes or urate icing consistent with gout although this does not rule it out. He still could have had a gout vs CPPD flare up. As he has had only 1 flare up and he feels well currently I do not feel any specific treatment is warrented. I discussed with pt if symptoms recur and/or he has 2 or flare ups a year we can consider putting him back on allopurinol. If symptoms recur can consider a course of prednisone. Pt to call for worsened joint complaints. F/u prn. Assessment & Plan (03/18/2017 10:04 AM CDT): Had episode of severe right ankle pain and erythema with no swelling. Unable to ambulate due to pain. Took 3 doses of colcrys with no benefit. After taking allopurinol developed pain with no swelling in left great toe so he stopped allopurinol. Uric acid >8 on 2 separate occasions. Symptoms resolved and has not had any pain complaints or recurrence of symptoms in >1 month. Gout remains possible as dose CPPD vs other inflammatory arthritis. Exam findings minimal currently. Will obtain labs as below. Will obtain US right foot/ankle to look for urate icing which would be consistent with a gout diagnosis. If pt continues to do well with no complaints I do not see any urgent need for treatment with a monosodium urate lowering medication although if symptoms recur and US is consistent with gout he would likely benefit. F/u 2 weeks. Encounters Date Type Department Care Team Description 03/15/2025 Telephone [facility] [address] [place] [phone] Alpa Garcia 03/03/2025 Telephone [facility] [address] [place] [phone] Yaritza Perales 03/02/2025 1:00 PM CDT Office Visit [facility] [address] [place] [phone] Dionne Magallanes PA Seronegative rheumatoid arthritis (HCC) (Primary Dx); Encounter for long-term (current) use of high-risk medication 12/31/2024 Telephone [facility] [address] [place] [phone] Che Lpiscomb approved. Covered 100% Auth [id number] expires 12.3112/28/2024 11:30 AM CDT Office Visit [facility] [address] [place] [phone] Dionne Magallanes PA Seronegative rheumatoid arthritis (HCC) (Primary Dx); Gout of multiple sites, unspecified cause, unspecified chronicity; Encounter for long-term (current) use of high-risk medication from Last 3 Months Immunizations Immunization Administration Dates Next Due Influenza, Quadrivalent, Split, Intramuscular Tdap 12/10/2021 Medical History Medical History Date Comments Hx Other Medical foot surgery Hx Other Medical adenoids (as a child) HL (hearing loss) Tinnitus Dizziness Family History Medical History Relation Name Comments Diabetes type II Other Family hist ory of Diabetes -Type 2; Relation Name Status Comments Other Social History Tobacco Use Types Packs/Day Years Used Date Smoking Tobacco: Never Smokeless Tobacco: Never Alcohol Use Standard Drinks/Week Comments No 0 (1 standard drink = 0.6 oz pur e alcohol) Personal Safety Answer Date Recorded Have you ever been in or are you currently in a harmful physical or emotional relationship or is someone making you feel afraid or unsafe? Denies 10/16/2022 Sex and Gender Information Value Date Recorded Sex Assigned at Not on file Legal Sex Male 7:42 AM FURNITURE SERVICER Gender Identity Not on file Sexual Orientation Not on file Obstetrics History Last Filed Vital Signs Vital Sign Reading Time Taken Comments Blood Pressure 104/72 03/02/2025 1:03 PM CDT Pulse 94 03/02/2025 1:03 PM CDT Temperature 36.6 C (97.8 F) 12/03/2022 10:44 PM CDT Respiratory Rate 18 12/04/2022 1:15 AM CDT Oxygen Saturation 95% 03/02/2025 1:03 PM CDT Inhaled Oxygen Concentration - - Weight 107.5 kg (237 lb) 03/02/2025 1:03 PM CDT Height 185.4 cm (6' 1) 03/02/2025 1:03 PM CDT Body Mass Index 31.27 03/02/2025 1:03 PM CDT Plan of Treatment Health Maintenance Due Date Last Done Comments Albumin Creatinine Ratio, Urine 1964 Colon Cancer Screening-Colonoscopy 1965 Depression Screening 1965 Dilated Eye Exam 1965 Foot Exam 1965 Regular Well Visit/Exam 18-64 01/17/1982 Pneumococcal vaccine <65 (1 of 2 - PCV) 01/17/1983 Zoster Vaccine (1 of 2) 01/17/1983 Prostate Cancer Screening-PSA 12/30/2019 12/29/2017 Lipid Panel 08/11/2024 08/12/2023, 06/27, 02/13/2018, Additional history exists Covid-19 Vaccine (5 - 2024-2 6 season) 2025 05/20/2021, 09/12/2020, 08/30/2020, Additional history exists Hemoglobin A1C 01/28/2025 07/28/2024, 10/24, 07/21/2020, Additional history exists eGFR 09/27/2025 09/27/2024, 03/0 09/2024, 04/29/2024, Additional history exists DTaP/Tdap/Td Vaccine (2 - Td or Tdap) 12/11/2031 12/10/2021 Hepatitis B Screening Completed 06/23/2019 Hepatitis C Screening Completed 06/23/2019 , 02/23/2018, 07/04/2017 Influenza Vaccine Completed 03/02/2025 Procedures Procedure Name Priority Date/Time Associated Diagnosis Comments TPMT ACTIVITY Routine 03/02/2025 1:42 PM CDT COMPREHENSIVE METABOLIC PANEL Routine 09/27/2024 12:30 PM CDT Seronegative rheumatoid arthritis (HCC) Encounter for long-term (current) use of high-risk medication HEMOGLOBIN A1C Routine 07/28/2024 12:55 PM FURNITURE SERVICER HEPATITIS C ANTIBODY Routine 06/23/2019 3:12 PM FURNITURE SERVICER Arthralgia, unspecified joint TNI WITH LIPID PANEL Routine 02/13/2018 11:02 AM CDT PSA, TOTAL AND FREE Routine 12/29/2017 1 2:48 PM CDT from Last 3 Months or Most Recently Relevant to Health Maintenance Results * TPMT activity profile, RBC (03/02/2025 1:42 PM CDT) Pathologist [facility] TPMT activity 18 nmol/hr/mL RBC [facility]/Greg douglas [facility], Comment: Reference Range for TPMT Activity: >12 Normal 4-12 Heterozygote or low metabolizer <4 Homozygote Deficient Range This test was developed and its analytical performance characteristics have been determined by [employer]. It has not been cleared or approved by the FDA. This assay has been validated pursuant to the CLIA regulations and is used for clinical purposes. 03/02/2025 1:42 PM CDT 03/02/2025 1:48 PM CDT Dionne LOW LAB BLOOD ORDER SKYE Final Result [facility], [address] [place] [phone] * Comprehensive metabolic panel (09/27/2024 12:30 PM CDT) [facility] Glucose 98 65 - 99 mg/dL [facility] Comment: Fasting reference interval BUN 14 7 - 25 mg/dL [facility] Creatinine 1.04 0.70 - 1.35 mg/dL [facility] eGFR 82 > OR = 60 mL/min/1.7 3m2 [facility] BUN/creat ratio SEE NOTE: 6 - 22 (calc) [facility] Comment: Not Reported: BUN and Creatinine are within reference range. Sodium 138 135 - 146 mmol/L [facility] Potassium, pl 4.7 3.5 - 5.3 mmol/L [facility] Chloride 102 98 - 110 mmol/L [facility] CO2 30 20 - 32 mmol/L [facility] Calcium 9.4 8.6 - 10.3 mg/dL [facility] Protein, sr 6.7 6.1 - 8.1 g/dL [facility] Albumin 4.3 3.6 - 5.1 g/dL [facility] GLOBULIN 2.4 1.9 - 3.7 g/dL (calc) [facility] Alb/glob ratio 1.8 1.0 - 2.5 (calc) [facility] Bilirubin, total 0.4 0.2 - 1.2 mg/dL [facility] Alk phos 60 35 - 144 U/L [facility] AST 17 10 - 35 U/L [facility] ALT (SGPT) 15 9 - 46 U/L [facility] Blood 09/27/2024 12:3 0 PM CDT 09/27/2024 12:30 PM CDT Dionne LOW LAB BLOOD ORDER SKYE Final Result [facility] [address] [place] [phone] * (ABNORMAL) Hemoglobin A1c (07/28/2024 12:55 PM FURNITURE SERVICER) Hgb A1C 6.9(H) <5.7 % of total Hgb [facility] Comment: For someone without known diabetes, a hemoglobin A1c value of 6.5% or greater indicates that they may have diabetes and this should be confirmed with a follow-up test. For someone with known diabetes, a value <7% indicates that their diabetes is well controlled and a value greater than or equal to 7% indicates suboptimal control. A1c targets should be individualized based on duration of diabetes, age, comorbid conditions, and other considerations. Currently, no consensus exists regarding use of hemoglobin A1c for diagnosis of diabetes for children. 07/28/2024 12:5 5 PM FURNITURE SERVICER 07/28/2024 12:57 PM FURNITURE SERVICER Dionne LOW LAB BLOOD ORDER SKYE Final Result Performing Organization Address City/[facility]/ZIP Co de Phone Number [facility] [address] [place] [phone] * Hepatitis C antibody (06/23/2019 3:12 PM FURNITURE SERVICER) Pathologist [facility] Hep C Ab NON-REACT XANDER NON-REACT XANDER [employer] - [place] SIGNAL TO CUT-OFF 0.02 <1.00 [employer] - Responsa Comment: HCV antibody was non-reactive. There is no laboratory evidence of HCV infection. In most cases, no further action is required. However, if recent HCV exposure is suspected, a test for HCV RNA (test code 87024) is suggested. For additional information please refer to http://education.Crowdbase/faq/AVH34q2 (This link is being provided for informational/ educational purposes only.) Blood specimen (specimen) 06/23/2019 3:12 PM FURNITURE SERVICER 06/23/2019 3:14 PM FURNITURE SERVICER Narrative Resulting Agency Comment Performing Organization Information: Site ID: [id number] Name: [facility] Address: [address] [phone] Director: Joshua Lee D.O., MPH Dionne LOW LAB MICROBIOLOG Y - GENERAL ORDERABLES Final Result Performing Organization Address [facility] Co de Phone Number [employer] Olga Mcclure [place] * TNI with LIPID PANEL (02/13/2018 11:02 AM CDT) [facility] Troponin I < 0.300 0.000 - 0.300 ng/mL 02/13/2018 11:44 AM T [employer] HISTORICAL RESULTS Comment: Reference using JERALD Chemiluminescence Negative: Repeat in 4-6 hours as indicated. Triglycerides 137 0 - 149 mg/dL 02/13/2018 11:46 AM T [employer] HISTORICAL RESULTS Comment: National Lipid Association/NCEP Guidelines: Normal < 150 mg/dL Borderline high 150-199 mg/dL High 200-499 mg/dL Very High >=500 mg/dL Cholesterol 143 0 - 199 mg/dL Comment: National Lipid Association/NCEP Guidelines: Desirable < 200 mg/dL Borderline high: 200-239 mg/dL High Risk: >=240 mg/dL HDL Cholesterol 39 mg/dL 8 11:46 AM T [facility] HISTORICAL RESULTS Comment: Reference Ranges: Males: >=40 mg/dL Females: >=50 mg/dL LDL Cholesterol, Calc 77 0 - 129 mg/dL Comment: National Lipid Association/NCEP Guidelines: Optimal < 100 mg/dL Near Optimal 100-129 mg/dL Borderline high 130-159 mg/dL High >=160 mg/dL Cholesterol/HDL Ratio 3.7 Comment: Optimal < 3.5:1 High > 5:1 02/13/2018 11:0 2 AM CDT 02/13/2018 11:18 AM CDT us Silvia Palencia CAFE TEAM MEMBER LAB BLOOD ORDERABLES Final Resu lt [facility] HISTORICAL RESULTS * PSA, total and free (12/29/2017 12:48 PM CDT) Free PSA Screen 0.2 ng/mL 8 8:46 PM T [facility] HISTORICAL RESULTS PROSTATE SPECIFIC AG, TOTAL 0.5 0.0 - 4.0 ng/mL Comment: INTERPRETIVE INFORMATION: Prostate Specific Antigen The Dania PSA electrochemiluminescent immunoassay was used. Results obtained with different test methods or kits cannot be used interchangeably. The Dania PSA method is approved for use as an aid in the detection of prostate cancer when used in conjunction with a digital rectal exam in men age 50 and older. The Dania PSA method is also indicated for the serial measurement of PSA to aid in the prognosis and management of prostate cancer patients. Elevated PSA concentrations can only suggest the presence of prostate cancer until biopsy is performed. PSA concentrations can also be elevated in benign prostatic hyperplasia or inflammatory conditions of the prostate. PSA is generally not elevated in healthy men or men with non-prostatic carcinoma. PROSTATE SPECIFIC AG, % FREE 20 % 12/31/2017 8:46 PM CDT [facility] HIST[facility]ULTS Comment: INTERPRETIVE INFORMATION: Prostate Specific Antigen, Free Percentage Doctor[facility] uses the Dania Free PSA electrochemiluminescent immunoassay method in conjunction with the Dania PSA electrochemiluminescent immunoassay method to determine the free PSA percentage. Values obtained with different assay methods should not be used interchangeably. The free PSA percentage is an aid in distinguishing prostate cancer from benign prostatic conditions in men age 50 and older with a total PSA between 3 and 10 ng/mL and negative digital rectal examination findings. Prostatic biopsy is required for the diagnosis of cancer. In patients with total PSA concentrations of 4-10 ng/mL, the probability of finding prostate cancer on needle biopsy by age in years is: %fPSA 50-59 60-69 70 or older 0 - 10% 49% 58% 65% 11 - 18% 27% 34% 41% 19 - 25% 18% 24% 30% Greater than 25% 9% 12% 16% Other factors may help determine the actual risk of prostate cancer in individual patients. For related information, see www.Justworks.Secpanel/7888554 Performed by [facility], [address] [place] [id number] [email or web address], Jeff Shah MD, Lab. Director 12/29/2017 12:4 8 PM CDT 12/29/2017 1:12 PM CDT us Alpa Treadwell MD LAB BLOOD ORDERABLE S Final Result [facility] HISTORICAL RESULTS from Last 3 Months or Most Recently Relevant to Health Maintenance Insurance [facility]/PPO Address: [address] [address] [place] [address] [place] [place] WORKERS COMPENSATION GENERIC WORKERS COMPENSATION GENERIC WORKERS COMPENSATION GENERIC Care Teams Photo Finisher Relationship Specialty Start Date End Date Moisés Alexis MD [address] [place] [address] PCP - General Family Medicine 03/23/19 Augustine Monroy MD [address] [place] [address] Rheumatology 04/10/17 Dionne Magallanes PA [address] [place] [address] Physician Substation Operator Helper Generation 06/21/21 Elgin Batista MD [address] [place] [address] Referring Physician Neurology 11/04/22 Macario Renee MD [address] [place] [address] Referring Physician Pulmonary Disease 11/04/22
--- OUTSIDE RECORDS SUMMARY | 2025-03-16 12:33 | XMS_ITS | Encounter Summary ---
Author Organization [facility] Care Team Providers Care Bufferer Name Role Phone Augustine Monroy MD Unavailable [phone] Alpa Treadwell MD Primary Care Provi renata Moisés Alexis MD Primary Care Provider [phone] Dionne Magallanes Unavailable Elgin Batista MD Unavailable Macario Renee MD Unavailable [phone] Encounter Details Date Type Department Care Team (Latest Contact Info) Description 08/20/2017 Orders Only [facility] CLINCONV ProviderAnjali MD [address] [place] [address] Social History Tobacco Use Types Packs/Day Years Used Date Smoking Tobacco: Never Smokeless Tobacco: Never Alcohol Use Standard Drinks/Week Comments No 0 (1 standard drink = 0.6 oz pur e alcohol) Sex and Gender Information Value Date Recorded Sex Assigned at Not on file 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 us Historical Provider [facility] KAREN QUEEN Final Result documented in this encounter Visit Diagnoses Not on filedocumented in this encounter Care Teams Bufferer Relationship Specialty Start Date End Date Alpa Treadwell MD [address] [place] [address] PCP - General 07/22/17 03/22/19 Moisés Alexis MD [address] [place] [address] PCP - General Family Medicine 03/23/19 Augustine Monroy MD [address] [place] [address] Rheumatology 04/10/17 Dionne Magallanes PA [address] [place] [address] Physician Vp Director Of Creative Strategy 06/21/21 Elgin Batista MD [address] [place] [address] Referring Physician Neurology 11/04/22 Macario Renee MD [address] [place] [address] Referring Physician Pulmonary Disease 11/04/22 documented as of this encounter
--- OUTSIDE RECORDS SUMMARY | 2025-03-16 12:33 | XMS_ITS | Clinical Summary ---
Author Organization [facility] [employer] Address [address] [place] [address] Care Team Providers Care Power Machine Operator Name Role Phone Moisés Alexis MD Primary Care Provider [phone] Source Comments [employer],non-owned Affiliates and Associated Physician Practices is amultiple site organization consisting of ambulatory clinics and hospital sitesin [place], [place], [place] and [place]. This disclosure is being madepursuant to the Care Everywhere program and may not contain all information available regarding this patient. Last updated 18.[employer] Allergies No known active allergies Medications * Be aware that medications may not be up to date on this document. Alwaysverify current medications with the patient. allopurinol (ZYLOPRIM) 300 MG tablet Take 1 (one) tablet by mouth once daily 2 Active RINVOQ 15 MG tablet Take 15 mg by mouth once daily 2 Active albuterol HFA (PROVENTIL; VENTOLIN; PROAIR) 108 (90 Base) MCG/ACT inhaler Inhale 2 (two) puffs by mouth every 4 hours as needed 2 Active MARTÍNEZ CONTOUR NEXT TEST test strip 2 Active metoprolol succinate XL 24hr (Toprol XL) 50 MG tablet Take 1 (one) tablet by mouth once daily 4 Active Trelegy Ellipta 200-62.5-25 MCG/ACT inhaler Inhale 1 (one) puff by mouth once daily Active modafinil (Provigil) 100 MG tablet Take 1 (one) tablet by mouth every Morning and Noon 60 tablet 5 Active DULoxetine (Cymbalta) 60 MG capsule TAKE 1 CAPSULE BY MOUTH EVERY DAY 90 capsule 3 5 Active DULoxetine (Cymbalta) 60 MG capsule TAKE 1 CAPSULE BY MOUTH EVERY DAY 90 capsule 3 4 02/17/20 Discontinued Active Problems Problem Noted Date Diagnosed Date 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 Exercise intolerance 12/20/2024 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 Small fiber neuropathy 07/28/2021 Muscle weakness (generalized) 07/28/2021 Dysautonomia 07/28/2021 Encounters Date Type Department Care Team Description 02/16/2025 [address] [facility] Neurosciences [address] [place] [address] Elgin Batista MD Refill Request 02/15/2025 10:30 AM CDT - 02/15/2025 11:59 PM CDT Hospital Encounter [facility] [address] [place] [address] Bridget Garces, FEEDER OPERATOR-ENVELOPE ADJUSTER Elgin Batista MD Discharge Disposition: Home or Self Care 12/20/2024 8:40 AM CDT Office Visit [facility] [address] [facility] [address] [place] [address] Elgin Batista MD Small fiber neuropathy (Primary Dx); Dysautonomia (HCC); Entrapment neuropathy; Exercise intolerance; Idiopathic hypersomnia from Last 3 Months Family History Medical History Relation Name Comments Diabetes; unknown type Father Relation Name Status Comments Brother Alive Father Alive Mother Alive Social History Tobacco Use Types Packs/Day Years Used Date Smoking Tobacco: Never Smokeless Tobacco: Never Tobacco Cessation:Counseling Given: No Alcohol Use Standard Drinks/Week Comments Not Currently 0 (1 standard drink = 0.6 oz pur e alcohol) 1 drink a year Sex and Gender Information Value Date Recorded Sex Assigned at Not on file Legal Sex Male 6:02 AM CDT Gender Identity Not on file Sexual Orientation Not on file 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 Not on file Not on file Last Filed Vital Signs Vital Sign Reading Time Taken Comments Blood Pressure 153/100 12/20/2024 8:42 AM CDT Pulse 65 12/20/2024 8:42 AM CDT Temperature - - Respiratory Rate - - Oxygen Saturation - - Inhaled Oxygen Concentration - - Weight 104.3 kg (230 lb) 12/20/2024 8:42 AM CDT Height 185.4 cm (6' 1) 12/20/2024 8:42 AM CDT Body Mass Index 30.34 12/20/2024 8:42 AM CDT Plan of Treatment Upcoming Encounters Date Type Department Care Team (Late st Contact Info) Description 12/21/2025 8:40 AM CDT Office Visit [facility] [address] [place] [id number] Elgin Batista MD [address] [place] [address] Health Maintenance Due Date Last Done Comments COLOGUARD (AGES 45-75) - COL ON CA SCREENING 1965 COLON MONITORING 1965 COLONOSCOPY - COLON CA SCREENING 1964 CT COLONOGRAPHY - COLON CA SCREENING 1965 Colorectal Cancer Screening 1965 FIT - COLON CA SCREENING 1964 FLEX SIG - COLON CA SCREENING 1965 LIPID TESTING 1965 HIV SCREENING 01/17/1979 HEPATITIS C SCREENING 01/13/1982 DTAP/TDAP/TD VACCINES (1 - Tdap) 01/17/1983 PNEUMOCOCCAL VACCINE 50+ (1 of 1 - PCV) 01/17/2014 ZOSTER VACCINE (1 of 2) 01/17/2014 SCREENING FOR DIABETES 07/25/2021 Respiratory Syncytial Virus (RSV) Vaccine Pt: or over 60 yrs (1 - Risk 60-74 years 1-dose series) 2024 DEPRESSION SCREENING 05/26/2024 COVID-19 VACCINE (4 - 2024-2 6 season) 2025 05/20/2021, 08/30/2020, 08/02/2020 INFLUENZA VACCINE (#1) 2025 HEPATITIS B VACCINE Aged Out No longe r eligible based on patient's age to complete this topic HIB VACCINE Aged Out No longer eligi ble based on patient's age to complete this topic HPV VACCINE Aged Out No longer eligi ble based on patient's age to complete this topic MENINGOCOCCAL (Group B) VACCINE SHARED DECISION-MAKING Aged Out No longer eligible based on patient's age to complete this topic MENINGOCOCCAL GROUPS A/C/Y/W VACCINE Aged Out No longer eligible b ased on patient's age to complete this topic Procedures Procedure Name Priority Date/Time Associated Diagnosis Comments EMG WITH NERVE CONDUCTION STUDY Routine 02/15/2025 2:55 PM CDT Entrapment neuropathy from Last 3 Months Results * EMG WITH NERVE CONDUCTION STUDY (02/15/2025 2:55 PM CDT) Narrative Elgin Batista MD - 02/15/2025 2:55 PM CDT Elgin Batista MD 02/20/2025 1:39 PM Electromyography Report Full Name: Blanco Bell Gender: Male Date of : 1965 Visit Date: 02/15/2025 10:42 AM Age: 60 Years Examining Physician: Elgin Batista MD Referring Physician: Bridget Garces NP Tech: LUPILLO العلي Height: 6 feet 1 inch Weight: 230 lbs Patient Complaints: The patient is a 60-year-old male with weakness and paresthesia in both hands. Query nerve entrapment. IMPRESSION: - There is electrodiagnostic evidence of moderate bilateral carpal tunnel syndrome. - There is electrodiagnostic evidence of mild right ulnar neuropathy of uncertain localization. Motor Nerve Conduction Study Nerve / Sites Muscle DML Ref. CMAP Ref. Dur. Segments Delta-O Dist Easton Ref. ms ms mV mV ms ms cm m/s m/s R Median - APB Wrist APB 4.6 <=4.5 9.0 >=5.0 6.3 Wrist - APB 7 Elbow APB 9.3 8.9 6.9 Elbow - Wrist 4.7 24 51 >=50 L Median - APB Wrist APB 4.8 <=4.5 7.6 >=5.0 7.1 Wrist - APB 7 Elbow APB 10.1 6.7 7.5 Elbow - Wrist 5.3 26.5 50 >=50 R Ulnar - ADM Wrist ADM 2.9 <=3.5 13.5 >=6.0 7.1 Wrist - ADM 7 B.Elbow ADM 7.8 12.1 6.8 B.Elbow - Wrist 4.8 23.5 49 >=50 A.Elbow ADM 9.5 11.5 7.0 A.Elbow - B.Elbow 1.7 10 58 >=50 Axilla ADM 11.4 11.1 7.1 Axilla - A.Elbow 1.9 10 53 >=50 L Ulnar - ADM Wrist ADM 2.6 <=3.5 11.9 >=6.0 6.3 Wrist - ADM 7 B.Elbow ADM 7.0 10.7 6.5 B.Elbow - Wrist 4.5 24 54 >=50 A.Elbow ADM 8.9 10.0 6.5 A.Elbow - B.Elbow 1.8 10 55 >=50 Axilla ADM 10.5 9.9 6.6 Axilla - A.Elbow 1.6 10 62 >=50 R Ulnar - FDI Wrist FDI 4.5 <=4.5 18.9 >=6.0 6.1 Wrist - FDI B.Elbow FDI 8.8 18.3 6.6 B.Elbow - Wrist 4.3 23.5 55 >=50 A.Elbow FDI 10.6 18.0 6.6 A.Elbow - B.Elbow 1.9 10 53 >=50 Sensory Nerve Conduction Study Nerve / Sites Rec. Site Onset Ref. Peak O-P Amp Ref. Segments Dist. Delta-O Ref. Delta-P Easton. Ref. ms ms ms V V cm ms ms ms m/s m/s R Median, Ulnar - Dig II,V (Antidromic) Median Dig II Wrist 3.2 <=3.4 4.0 7.6 >=10.0 Median Dig II - Wrist 14 43 Ulnar Dig V Wrist 2.9 <=3.1 3.9 8.1 >=8.0 Ulnar Dig V - Wrist 14 49 Median Dig II - Ulnar Dig V 0.36 <=0.70 0.16 L Median, Ulnar - Dig II,V (Antidromic) Median Dig II Wrist 3.4 <=3.4 4.4 8.2 >=10.0 Median Dig II - Wrist 14 41 Ulnar Dig V Wrist 2.8 <=3.1 3.4 8.2 >=8.0 Ulnar Dig V - Wrist 14 50 Median Dig II - Ulnar Dig V 0.57 <=0.70 0.99 R Radial - Superficial (Antidromic) Forearm Wrist 1.7 <=2.5 2.3 21.0 >=15.0 Forearm - Wrist 10 58 >=45 L Radial - Superficial (Antidromic) Forearm Wrist 1.8 <=2.5 2.5 18.5 >=15.0 Forearm - Wrist 10 56 >=45 R Median, Radial - Thumb comparison Median Wrist Thumb 2.6 3.3 6.9 >=10.0 Median Wrist - Thumb 10 38 Radial Wrist Thumb 1.8 2.6 5.0 >=5.0 Radial Wrist - Thumb 10 55 Median Wrist - Radial Wrist 0.78 <=0.50 0.78 Orthodromic mixed Nerve Conduction Study Nerve / Sites Rec. Site Onset Peak Ref. O-P Amp Ref. Segments Dist. Delta-O Delta-P Ref. Easton. ms ms ms V V cm ms ms ms m/s R Median, Ulnar - Transcarpal comparison Median Palm Wrist 1.9 2.6 <=2.2 12.5 >=10.0 Median Palm - Wrist 8 42 Ulnar Palm Wrist 1.6 2.3 <=2.2 11.1 >=5.0 Ulnar Palm - Wrist 8 50 Median Palm - Ulnar Palm 0.31 0.26 <=0.40 L Median, Ulnar - Transcarpal comparison Median Palm Wrist 2.0 2.7 <=2.2 13.1 >=10.0 Median Palm - Wrist 8 40 Ulnar Palm Wrist 1.5 2.1 <=2.2 5.2 >=5.0 Ulnar Palm - Wrist 8 53 Median Palm - Ulnar Palm 0.47 0.63 <=0.40 EMG Summary Table Spontaneous MUAP Recruitment Muscle Nerve Roots IA Fib PSW Fasc Amp Dur. Poly Pattern R. Abductor pollicis brevis Median C8-T1 Nml Nml Nml 0 Nml Nml Nml Nml R. First dorsal interosseous Ulnar C8-T1 Nml Nml Nml 0 Nml Nml Nml Nml L. Abductor pollicis brevis Median C8-T1 Nml Nml Nml 0 Nml Nml Nml Nml Summary The motor conduction test was performed on 5 nerve(s). The results were normal in 2 nerve(s): L Ulnar - ADM, R Ulnar - FDI. Results outside the specified normal range were found in 3 nerve(s), as follows: In the R Median - APB study the distal motor latency result was increased for Wrist stimulation In the L Median - APB study the distal motor latency result was increased for Wrist stimulation In the R Ulnar - ADM study the conduction velocity result was reduced for B.Elbow - Wrist segment The sensory conduction test was performed The results were normal in: R Radial - Superficial (Antidromic), L Radial - Superficial (Antidromic). Results outside the specified normal range were found as follows: In the R Median, Ulnar - Dig II,V (Antidromic) study the SNAP amplitude result was reduced for Median Dig II stimulation In the L Median, Ulnar - Dig II,V (Antidromic) study the SNAP amplitude result was reduced for Median Dig II stimulation In the R Median, Radial - Thumb comparison study the SNAP amplitude result was reduced for Median Wrist stimulation the delta onset latency result was increased for Median Wrist - Radial Wrist segment In the R Median, Ulnar - Transcarpal comparison study the peak latency result was increased for Median Palm stimulation the peak latency result was increased for Ulnar Palm stimulation In the L Median, Ulnar - Transcarpal comparison study the peak latency result was increased for Median Palm stimulation the delta peak latency result was increased for Median Palm - Ulnar Palm segment The needle EMG study was normal in all 3 tested muscles: R. Abductor pollicis brevis, R. First dorsal interosseous, L. Abductor pollicis brevis. Abbreviations: CMAP = compound muscle action potential, SNAP = sensory nerve action potential, MUP = motor unit potential, Fib = fibrillation, PSW = positive sharp wave, NCS = nerve conduction study, RNS = repetitive nerve stimulation Bridget Garces FEEDER OPERATOR-ENVELOPE ADJUSTER NEUROLOGY ORDERABLES Final Result from Last 3 Months Insurance [facility] SELF PAY NO INSURANCE Member Subscriber Plan / Payer (Ef fective for All Dates) Name:Blanco Bell Member ID:Not on file Relation to Subscriber:Not on file Name:BLANCO BELL Subscriber ID:Not on file Address: [address] [place], [place] [address] Payer ID:Not on file Group ID:Not on file Type:Self Pay Address: [place], [place] Care Teams Power Machine Operator Relationship Specialty Start Date End Date Moisés Alexis MD [address] [place] [address] PCP - General Family Medicine 06/22/24
--- OUTSIDE RECORDS SUMMARY | 2025-03-16 12:33 | XMS_ITS | Encounter Summary ---
Author Organization [facility] Care Team Providers Care Leather Goods Assembler Name Role Phone Alpa Treadwell MD Primary Care Provi renata Augustine Monroy MD Unavailable [phone] Moisés Alexis MD Primary Care Provider [phone] Alpa Treadwell MD Primary Care Provi renata Alpa Treadwell MD Primary Care Provi renata Moisés Alexis MD Primary Care Provider [phone] Dionne Magallanes Unavailable Elgin Batista MD Unavailable Macario Renee MD Unavailable [phone] Encounter Details Date Type Department Care Team (Latest Contact Info) Description 03/21/2017 Orders Only [facility] CLINCONV ProviderAnjali MD [address] [place] [address] Social History Tobacco Use Types Packs/Day Years Used Date Smoking Tobacco: Never Smokeless Tobacco: Never Alcohol Use Standard Drinks/Week Comments No 0 (1 standard drink = 0.6 oz pur e alcohol) Sex and Gender Information Value Date Recorded Sex Assigned at Not on file 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 us Historical Provider [facility] KAREN QUEEN Final Result documented in this encounter Visit Diagnoses Not on filedocumented in this encounter Care Teams Leather Goods Assembler Relationship Specialty Start Date End Date Alap Treadwell MD [address] [place] [address] PCP - General Family Medicine 03/17/17 05/06/17 Moisés Alexis MD [address] [place] [address] PCP - General 05/07/17 06/25/17 Alpa Treadwell MD [address] [place] [address] PCP - General Family Medicine 06/26/17 07/21/17 Alpa Treadwell MD [address] [place] [address] PCP - General 07/22/17 03/22/19 Moisés Alexis MD [address] [place] [address] PCP - General Family Medicine 03/23/19 Augustine Monroy MD [address] [place] [address] Rheumatology 04/10/17 Dionne Magallanes PA [address] [place] [address] Physician Admitting Office Escort 06/21/21 Elgin Batista MD [address] [facility] [address] [place] [address] Referring Physician Neurology 11/04/22 Macario Renee MD [address] [facility] [address] [place] [address] Referring Physician Pulmonary Disease 11/04/22 documented as of this encounter
--- OUTSIDE RECORDS SUMMARY | 2025-03-16 12:33 | XMS_ITS | Data Portability ---
Author Organization [facility] Address [address] [place] [address] Care Team Providers Care Top Closer Name Role Phone SHIRA ALEMAN Referring Provider Assessment No assessment recorded. Plan of Treatment Reminders Order Date Submit Date Provider Last Modified By Organization Details Last Modified Time Details Appointments None record ed. Lab None record ed. Referral None record ed. Procedures None record ed. Surgeries None record ed. Imaging None record ed. Medication Orders None record ed. Patient TargetsNo targets recorded. Patient InstructionsNo instructions recorded. Reason for Referral None Reported. Procedures Surgical History Date Name Laterality Status Provider Name and Address Organization Details Recorded Time 03/24/2024 Sleep Study completed Georges Calvo-Ana [facility] 03/30/2024 14:04:06 Imaging Results None recorded. Procedure Notes None recorded. Medical Equipment None Reported. Vitals Date Recorded Body height Body mass index (BMI) Body weight Provider Name and Address Organization Details Last Updated DateTime 03/24/2024 185.42 cm 30.5 kg/m2 793543.84 g Georges Calvo-Hrit z [facility] 03/24/2024 13:09:53 Social History None recorded. Functional Status None recorded. Mental Status None recorded. Family History Nothing Reported. Medical History No medical history recorded. Past Encounters Encounter ID Performer Location Encounter Start Date Encounter Closed Date Diagnosis/Indication Diagnosis SNOMED-CT Code Diagnosis ICD10 Code Diagnosis IMO Codes Diagnosis Note [id number] [facility], [place] [phone] [place] [address] 03/24/2024 12:29:45 03/30/2024 13:59:10 Obstructive sleep apnea of adult 8273214087 103 G47.33 Health Concerns Section Related Observation LastModified by Organization Detai ls LastModified Time None Recorded Concern Status LastModified by Organization Details LastModified Time None Recorded Advance Directives Directive None Recorded Payers Insurance Date Sequence Insurance Name Policy Number Policy Walter Covered Member ID Walter Member ID Guarantor Name 05/21/2024 1 [place] [id number] Adryan Bell [id number] Adryan Ray Notes Date Note Type Note Provider Name and Address Organization Details Recorded Time 03/24/2024 text/html HST SetupReporte d by PatientEquipment InstructionsFor hst set up, patient reportshst device number 37,demonstrated to patient how to set up home sleep test device. the patient was able to return demonstration with out difficulty., andthe patient is returning the device the following morning.. Sebastián Rothman MD [facility] [id number] [address] [place] [address], [place], [address], [facility] 03/31/2024 11:06:15
--- OUTSIDE RECORDS SUMMARY | 2025-03-16 12:33 | XMS_ITS | Encounter Summary ---
Author Organization [facility] Care Team Providers Care Manager Night Name Role Phone Augustine Monroy MD Unavailable [phone] Alpa Treadwell MD Primary Care Provi renata Moisés Alexis MD Primary Care Provider [phone] Dionne Magallanes Unavailable Elgin Batista MD Unavailable Macario Renee MD Unavailable [phone] Encounter Details Date Type Department Care Team (Latest Contact Info) Description 04/22/2018 Orders Only [facility] CLINCONV ProviderAnjali MD [address] [place] [address] Social History Tobacco Use Types Packs/Day Years Used Date Smoking Tobacco: Never Smokeless Tobacco: Never Alcohol Use Standard Drinks/Week Comments No 0 (1 standard drink = 0.6 oz pur e alcohol) Sex and Gender Information Value Date Recorded Sex Assigned at Not on file Legal Sex Male 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 us Historical Provider Final Res ult * COLONOSCOPY - SCAN (04/22/2018 12:00 AM LOOM DOFFER) Narrative 04/22/2018 12:00 AM LOOM DOFFER Ordered by an unspecified provider. us Historical Provider Final Res ult documented in this encounter Visit Diagnoses Not on filedocumented in this encounter Care Teams Manager Night Relationship Specialty Start Date End Date Alpa Treadwell MD [address] [place] [address] PCP - General 07/22/17 03/22/19 Moisés Alexis MD [address] [place] [address] PCP - General Family Medicine 03/23/19 Augustine Monroy MD [address] [place] [address] Rheumatology 04/10/17 Dionne Magallanes PA [address] [place] [address] Physician Cuff Matcher 06/21/21 Elgin Batista MD [address] [place] [address] Referring Physician Neurology 11/04/22 Macario Renee MD [address] [place] [address] Referring Physician Pulmonary Disease 11/04/22 documented as of this encounter
--- OUTSIDE RECORDS SUMMARY | 2025-03-16 12:33 | XMS_ITS | Clinical Summary ---
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
--- OUTSIDE RECORDS SUMMARY | 2025-03-16 12:33 | XMS_ITS | Encounter Summary ---
Author Organization [facility] Address [address] [place] [address] Phone Care Team Providers Care Solution Specialist Name Role Phone Augustine Monroy MD Unavailable [phone] Moisés Alexis MD Primary Care Provider + [phone] Dionne Magallanes Unavailable Elgin Batista MD Unavailable Macario Renee MD Unavailable [phone] Encounter Details Date Type Department Care Team (Late st Contact Info) Description 03/15/2025 Telephone [facility] [address] [place] [phone] Alpa Garcia Social History Tobacco Use Types Packs/Day Years [...] on file 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 Gender Identity Not on file Sexual Orientation Not on file documented as of this encounter Miscellaneous Notes * Telephone Encounter - Alpa Garcia - 03/15/2025 2:08 PM CDT [facility] pharmacy was called, informed * Telephone Encounter - Alpa Garcia - 03/15/2025 10:41 AM CDT Received call from Estefania wanting to make sure it is okay for patient to continue both Allopurinol and AZA as there is a drug interaction # [phone] documented in this encounter Plan of Treatment Not on file documented as of this encounter Visit Diagnoses Not on filedocumented in this encounter Care Teams Solution Specialist Relationship Specialty Start Date End Date Moisés Alexis MD [address] [place] [address] PCP - General Family Medicine 03/23/19 Augustine Monroy MD [address] [place] [address] Rheumatology 04/10/17 Dionne Magallanes PA [address] [place] [address] Physician Electrical Design Engineer 06/21/21 Elgin Batista MD [address] [place] [address] Referring Physician Neurology 11/04/22 Macario Renee MD [address] [place] [address] Referring Physician Pulmonary Disease 11/04/22 documented as of this encounter
--- OUTSIDE RECORDS SUMMARY | 2025-03-16 12:33 | XMS_ITS | Clinical Summary ---
Author Organization [facility] Address [address] [place] [address] Care Team Providers Care Fine Arts Packer Name Role Phone Moisés Alexis MD Primary Care Provider [phone] Allergies No known active allergies Medications allopurinol (ZYLOPRIM) 300 MG tablet Take 1 tablet (300 mg total) by mouth daily. 07/20/19 24 Active DULoxetine (CYMBALTA) 60 MG capsule Take 1 capsule (60 mg total) by mouth daily. Active rosuvastatin (CRESTOR) 10 MG tablet Take 1 tablet (10 mg total) by mouth nightly at bedtime. 90 tablet 3 08/05/19 24 Active TRELEGY ELLIPTA 200-62.5-25 MCG/ACT AEROSOL POWDER, BREATH ACTIVATED INHALE 1 INHALATION BY MOUTH DAILY 03/03/20 24 Active OZEMPIC, 0.25 OR 0.5 MG/DOSE, 2 MG/3ML injection (PEN) INJECT 0.25 MG SUBCUTANEOUSLY WEEKLY FOR 4 WEEKS THEN INCREASE TO 0.5 MG 01/31/20 24 Active metoprolol succinate ER (TOPROL-XL) 50 MG 24 hr tablet TAKE 1 TABLET(50 MG) BY MOUTH DAILY 90 tablet 1 11/20/19 25 Active valsartan (DIOVAN) 160 MG tablet Take 1 tablet (160 mg total) by mouth daily. 30 tablet 5 02/23/20 25 Active amLODIPine (NORVASC) 5 MG tablet Take 1 tablet (5 mg total) by mouth daily. 90 tablet 2 02/23/20 25 Active amLODIPine (NORVASC) 5 MG tablet Take 0.5 tablets (2.5 mg total) by mouth daily. If BP still >150 after 3 days, then increase to 5 mg daily. 30 tablet 2 02/15/20 25 2024 Discontinued Active Problems Problem Noted Date Diagnosed Date Hypertension 08/05/2023 Dysautonomia 07/28/2021 Encounter for long-term (cur rent) use of high-risk medication 05/28/2021 Overview (08/04/2023): Last Assessment & Plan: Will monitor routine labs while on immunosuppressive medication. Labs at next visit. 05/2019: Neg Hep B/C 07/2019: Neg QuantGold 09/2022 PrismRA 17.8 - 10% chance of responding to TNFi Elevated hemoglobin A1c 07/21/2020 Overview (08/04/2023): 06/2020 A1c 6.2 Last Assessment & Plan: No follow up with PCP according to PT. Will check A1c as he was 6.5% at last visit. Educated patient about dangers of untreated/poor monitoring of T2DM. 06/2020 A1c 6.2 Last Assessment & Plan: Has not had A1c checked in over a year. On metformin 500mg ER once daily. Will check today. Seronegative rheumatoid arthritis 08/12/2019 Overview (08/04/2023): Previous workup: 10/2016: neg RF, NOAH, sed [...] size at sinus of valsalva at 4.2cm. Left hand/wrist US (06/30/19): Mild effusions on [...] which likely has affected the inflammatory process. 06/2019 xrays: -CXR: normal, cannot visualize 5mm [...] NOAH 38 by lianne only, c1q 86 Left hand/wrist US (08/04/20): 1) Mild/moderate effusions [...] is little change in the inflammatory process. 07/2020 xrays: -Bilat hands: Old healed fracture [...] margins, chronic appearing, nonspecific -Lt foot: unremarkable Last Assessment & Plan: Joints are stable on rinvoq 15mg once [...] another foot injection with full dose toradol. Previous workup: 10/2016: neg RF, NOAH, sed [...] which likely has affected the inflammatory process. 06/2019 xrays: -CXR: normal, cannot visualize 5mm [...] NOAH 38 by lianne only, c1q 86 Left hand/wrist US (08/04/20): 1) Mild/moderate effusions [...] is little change in the inflammatory process. 07/2020 xrays: -Bilat hands: Old healed fracture [...] margins, chronic appearing, nonspecific -Lt foot: unremarkable Last Assessment & Plan: Low PrismRA 17.8 - 10% TNF responder. [...] sooner if needed. Seen with Dr. Monroy. Dyspnea 06/23/2019 Overview (08/04/2023): 07/2017: TTEcho with mild pulmonic regurg, Grade 1 diastolic dysfunction, stress test was? 12/09: neg cxr, normal PFT +/- upper airway obstruction due to flattened inspiratory limb of flow volume loop cough Last Assessment & Plan: Patient believes his dyspnea is likely more due to his muscle fatigue. He has not seen Dr. Renee nor had PFTs taken. Will give order for PFTs/CXR to rule out pulmonary involvement in his dyspnea following simple activities. 07/2017: TTEcho with mild pulmonic regurg, Grade 1 diastolic dysfunction, stress test was? 12/09: neg cxr, normal PFT +/- upper airway obstruction due to flattened inspiratory limb of flow volume loop cough 10/2022 CT chest w/o: renal calculi. Degenerative changes throughout mid and lower thoracic spine. Unremarkable pulmonary parenchyma without hilar adenopathy. Last Assessment & Plan: Continues to have moderate dyspnea with simple exertion. TTE in 2017 with mild pulmonic regurgitation and no right atrial enlargement. Reports he had a stress test 2 years ago and told he needed to see a pneudraulic systems mechanic. Continues to see Dr. Renee and was told he has asthma but no benefit with inhalers and reports recent PFTs. Has not had a CT chest and last CXR was 2019 and was unremarkable. Will order CT chest scan. Gout of multiple sites 04/07/2018 Overview (08/04/2023): US right foot/ankle (04/01/17): No obvious acute inflammatory changes seen. Cortical irregularity was see in the 2nd metatarsal which may represent an erosive change. No obvious urate icing seen although this does not rule out gout. An enlarged plantar fascia was observed. Previous on allopurinol although pt self DC'd as wanted to limit meds Last Assessment & Plan: Remains on 300mg allopurinol once daily without recurrence of gout flares. Will check uric acid level today. Encounters Date Type Department Care Team Description 02/22/2025 [facility] [address] [address] Josefa Neal, CODING QUALITY ANALYST Blood Pressure 02/14/2025 Telephone [facility] [facility], [address] [address] Josefa Neal, CODING QUALITY ANALYST Blood Pressure from Last 3 Months Immunizations Immunization Administration Dates Next Due Tdap (Generic) 12/10/2021 Family History Medical History Relation Comments Heart Disease Father Stent Cardiac Father stent Father Relation Status Comments Brother Alive Father Alive Mother Alive Social History Tobacco Use Types Packs/Day Years Used Date Smoking Tobacco: Never Smokeless Tobacco: Never Tobacco Cessation:Counseling Given: Not Answered Alcohol Use Standard Drinks/Week Comments Never 0 (1 standard drink = 0.6 oz pur e alcohol) Sex and Gender Information Value Date Recorded Sex Assigned at Not on file Legal Sex Male 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 Gender Identity Not on file Sexual Orientation Not on file 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 file Not on file Not on file Last Filed Vital Signs Vital Sign Reading Time Taken Comments Blood Pressure 126/82 03/17/2024 9:10 AM CDT Pulse 65 03/17/2024 9:10 AM CDT Temperature 36.7 C (98 F) 08/12/2023 12:23 PM CDT Respiratory Rate 13 08/12/2023 6:00 PM CDT Oxygen Saturation 98% 03/17/2024 9:10 AM CDT Inhaled Oxygen Concentration - - Weight 104.8 kg (231 lb) 03/17/2024 9:10 AM CDT Height 185.4 cm (6' 1) 03/17/2024 9:10 AM CDT Body Mass Index 30.48 03/17/2024 9:10 AM CDT Plan of Treatment Upcoming Encounters Date Type Department Care Team (Late st Contact Info) Description 03/21/2025 9:15 AM CDT Office Visit [facility] [facility] [address] [place], [place] [id number] Josefa Neal NP [facility] [address] [place], [place] [id number] Health Maintenance Due Date Last Done Comments Colorectal Cancer Screening Colonoscopy (10 Years) 1964 Annual Physical 01/17/1967 Hepatitis C 01/17/1982 Pneumococcal Vaccine: 50+ Years (1 of 1 - PCV) 01/17/2014 Zoster Vaccines (1 of 2) 01/17/2014 COVID-19 Vaccine (4 - 2024-2 6 season) 2025 05/20/2021, 08/30/2020, 08/02/2020 Influenza Adult (#1) 2025 DTaP, Tdap and Td Vaccines ( 2 - Td or Tdap) 12/11/2031 12/10/2021 RSV Immunization or 60+ Years (1 - 1-dose 75+ series) 01/17/2039 Hepatitis A Vaccines Aged Out No long er eligible based on patient's age to complete this topic Meningococcal B Vaccine Aged Out No l onger eligible based on patient's age to complete this topic Meningococcal Vaccine Aged Out No myriam graciela eligible based on patient's age to complete this topic RSV Immunizations Under 20 Months Aged Out No longer eligible b ased on patient's age to complete this topic Insurance [facility] Care Teams Fine Arts Packer Relationship Specialty Start Date End Date Moisés Alexis MD [address] [address] PCP - General FAMILY PRACTICE 07/03/23
[2025-03-16 12:38] LABS: Prostate Specific Antigen 1.1 ng/mL (< OR = 4.0)
[2025-03-16 12:40] LABS: Thyroid Stimulating Hormone 1.880 uIU/mL (0.465-4.680)
== END 2025-03-16 10:18 | disposition home or self-care (01) ==
PROVIDERS: PCP Family Medicine; Visit Provider Nurse Practitioner Adult Health
DX: E78.2 Mixed hyperlipidemia (principal); I10 Essential (primary) hypertension; R79.89 Other specified abnormal findings of blood chemistry; R10.31 Right lower quadrant pain; Z13.29 Encounter for screening for other suspected endocrine disorder; Z12.5 Encounter for screening for malignant neoplasm of prostate; N20.0 Calculus of kidney; R10.A0 Flank pain, unspecified side
CPT/HCPCS: 36415; 74018; 74176; 80053; 80061; 82043; 84153; 84443; 85025; G0103